=== PATIENT | male | born 1990 | race Caucasian/White ===

== ENCOUNTER 2017-04-10 20:01 | Inpatient (IN) | payer BC, OTHER ==
[2017-04-10] MEDS ORDERED: Ondansetron 4 MG/2 ML SDV IVPUSH ONE (20:53)
[2017-04-10] MEDS ORDERED: Sodium Chloride 0.9% 1,000 ML IV ONE ×3 (20:53→23:39)
--- NOTE | 2017-04-10 20:56 | EDM.PDOC ---
ED HPI GENERAL MEDICAL PROBLEM - General Chief Complaint: Respiratory Problem Stated Complaint: COUGH Time Seen by Provider: 04/10/17 20:06 Source of Information: Reports: Patient, RN Notes Reviewed History Limitations: Reports: No Limitations - History of Present Illness INITIAL COMMENTS - FREE TEXT/NARRATIVE: The patient states that he has had a cough productive of yellow mucus for the past 2 weeks, and laryngitis for the past 4 days. He has not had a fever, and he is not dyspneic at rest, but he does have dyspnea associated with the cough when he exerts himself. He also reports nausea and emesis for the past 2 days. He states that he has been taking [id number] Mucinex, NyQuil, and cough drops, with no relief. The patient states that he is a type I diabetic, and that his blood sugars have been higher than usual over the past 2 days. The patient states that he is from [place], here for work, and that his PCP is back in [place]. He has not sought medical evaluation for this current problem. - Related Data Allergies Allergy/AdvReac Type Severity Reaction Status Date / Time No Known Allergies Allergy Verified 04/10/17 20:11 Home Meds: Home Meds Insulin Npl/Insulin Lispro [HumaLOG Mix 75-25 Vial] 100 unit SQ DAILY 04/10/17 [ History] Past Medical History HEENT History: Reports: Impaired Vision Other HEENT History: wears corrective lenses Endocrine/Metabolic History: Reports: Diabetes, Type I Social & Family History - Tobacco Use Smoking Status *Q: Never Smoker Second Hand Smoke Exposure: No - Caffeine Use Caffeine Use: Reports: Coffee - Alcohol Use Alcohol Use History: Yes Alcohol Use Frequency: Socially - Recreational Drug Use Recreational Drug Use: No - Living Situation & Occupation Living situation: Reports: Single, Alone Occupation: Employed ([employer]) [facility] - Review of Systems Review Of Systems: See Below Constitutional: Reports: No Symptoms. Denies: Fever, Chills HEENT: Reports: No Symptoms Respiratory: Reports: Cough (as per the HPI). Denies: Shortness of Breath Cardiovascular: Reports: Dyspnea on Exertion (as per the HPI) Endocrine: Reports: No Symptoms GI/Abdominal: Reports: Nausea (as per the HPI), Vomiting (as per the HPI) : Reports: No Symptoms Musculoskeletal: Reports: No Symptoms Skin: Reports: No Symptoms Neurological: Reports: No Symptoms Psychiatric: Reports: No Symptoms Hematologic/Lymphatic: Reports: No Symptoms Immunologic: Reports: No Symptoms ED EXAM, GENERAL - Physical Exam Exam: See Below Exam Limited By: No Limitations General Appearance: Alert, WD/WN, No Apparent Distress Eye Exam: Bilateral Eye: Normal Inspection Ears: Normal External Exam, Normal Canal, Hearing Grossly Normal, Normal TMs Nose: Normal Inspection, No Blood, Other (Bilateral nasal mucosal edema, greater on the left than the right) Throat/Mouth: Normal Inspection, Normal Lips, Normal Teeth, Normal Gums, Normal Voice, No Airway Compromise, Other (No oropharyngeal erythema or swelling, however, thick postnasal mucus is noticed draining on the posterior oropharynx) Head: Atraumatic, Normocephalic Neck: Normal Inspection, Supple, Non-Tender, Full Range of Motion. No: Lymphadenopathy (L), Lymphadenopathy (R) Respiratory/Chest: No Respiratory Distress, Lungs Clear, Normal Breath Sounds, No Accessory Muscle Use Cardiovascular: Normal Peripheral Pulses, Regular Rate, Rhythm, No Gallop, No JVD, No Murmur, No Rub Peripheral Pulses: 4+: Radial (L), Radial (R) GI/Abdominal: Normal Bowel Sounds, Soft, Non-Tender, No Organomegaly, No Distention, No Abnormal Bruit, No Mass (Male) Exam: Deferred Rectal (Males) Exam: Deferred Back Exam: Normal Inspection, Full Range of Motion, NT Extremities: Normal Inspection, Normal Range of Motion, No Pedal Edema, Normal Capillary Refill Neurological: Alert, Oriented, Normal Cognition, No Motor/Sensory Deficits Psychiatric: Normal Affect Skin Exam: Warm, Dry, Intact, Normal Color, No Rash Course - Vital Signs Last Recorded V/S: Last Vital Signs Temp 36.6 C 04/10/17 20:07 Pulse 119 H 04/10/17 20:07 Resp 18 04/10/17 20:07 BP 151/104 H 04/10/17 20:07 Pulse Ox 100 04/10/17 20:07 - Orders/Labs/Meds Orders: Active Orders 24 hr Category Date Time Status Chest 2V [CR] Stat Exams 04/10/17 20:52 Taken Sodium Chloride 0.9% [Normal Saline] 1,000 ml Med 04/10/17 22:22 Active IV ONETIME Medication Orders Sodium Chloride (Normal Saline) 1,000 mls @ 999 mls/hr IV ONETIME ONE Stop: 04/10/17 23:22 Last Admin: 04/10/17 22:26 Dose: 999 mls/hr Labs: Laboratory Tests 04/10/17 04/10/17 04/10/17 Range/Units 20:14 20:55 20:55 WBC 8.82 (4.23-9.07) K/mm3 RBC 5.52 (4.63-6.08) M/mm3 Hgb 16.6 (13.7-17.5) gm/L Hct 47.5 (40.1-51.0) % MCV 86.1 (79.0-92.2) fl MCH 30.1 (25.7-32.2) pg MCHC 34.9 (32.2-35.5) g/dl RDW Std Deviation 39.7 (35.1-43.9) fL Plt Count 476 H (163-337) K/mm3 MPV 9.0 L (9.4-12.3) fl Neutrophils % (Manual) 76 H (40-60) % Band Neutrophils % 0 (0-10) % Lymphocytes % (Manual) 18 L (20-40) % Atypical Lymphs % 1 % Monocytes % (Manual) 3 (2-10) % Eosinophils % (Manual) 0 L (0.8-7.0) % Basophils % (Manual) 2 H (0.2-1.2) Platelet Estimate Increased Plt Morphology Comment Normal RBC Morph Comment Normal Sodium 134 L (136-145) mEq/L Potassium 4.4 (3.5-5.1) mEq/L Chloride 96 L (98-107) mEq/L Carbon Dioxide 17 L (21-32) mEq/L Anion Gap 25.4 H (5-15) BUN 15 (7-18) mg/dL Creatinine 1.4 H (0.7-1.3) mg/dL Est Cr Clr Drug Dosing 88.53 mL/min Estimated GFR (MDRD) > 60 (>60) mL/min BUN/Creatinine Ratio 10.7 L (14-18) Glucose 281 H (74-106) mg/dL POC Glucose 307 H (70-105) mg/dL Calcium 10.2 H (8.5-10.1) mg/dL Total Bilirubin 0.6 (0.2-1.0) mg/dL AST 11 L (15-37) U/L ALT 20 (16-63) U/L Alkaline Phosphatase 153 H (46-116) U/L Total Protein 9.2 H (6.4-8.2) g/dl Albumin 4.2 (3.4-5.0) g/dl Globulin 5.0 gm/dL Albumin/Globulin Ratio 0.8 L (1-2) Meds: Medications Generic Name Dose Route Start Last Admin Trade Name Freq PRN Reason Stop Dose Admin Sodium Chloride 1,000 mls @ 999 mls/hr 04/10/17 22:22 04/10/17 22:26 Normal Saline IV 04/10/17 23:22 999 mls/hr ONETIME ONE Administration Discontinued Medications Generic Name Dose Route Start Last Admin Trade Name Freq PRN Reason Stop Dose Admin Sodium Chloride 1,000 mls @ 999 mls/hr 04/10/17 20:53 04/10/17 20:58 Normal Saline IV 04/10/17 21:53 999 mls/hr ONETIME ONE Administration Ondansetron HCl 4 mg 04/10/17 20:53 04/10/17 20:58 Zofran IVPUSH 04/10/17 20:54 4 mg ONETIME ONE Administration - Re-Assessments/Exams Free Text/Narrative Re-Assessment/Exam: 04/10/17 21:12 The patient's Accu-Chek returned elevated at 307. This was discussed with the patient. The patient has his own insulin here in the ED, therefore I have allowed him to take however much insulin he ordinarily would for a blood sugar of 307. 04/10/17 21:12 Two-view chest radiograph appears to be grossly normal. Cardiac silhouette is within normal limits. No pulmonary vascular congestion. No pleural effusions. No focal infiltrate. No pneumothorax. Formal read per the Radiologist pending. 04/10/17 22:26 Test results discussed with the patient. The patient does not have pneumonia - he does not have an elevated WBC count, and his chest x-ray is normal. He does, however, have an anion gap metabolic acidosis and mild hyperglycemia. I don't believe that he has DKA, but I believe if this were left on addressed, that he might develop DKA, therefore I am recommending placement into observation with continued IV fluid and electrolyte monitoring. The patient is agreeable. Case then discussed with Dr. Key at 22:23. She agrees to place the patient into observation, on MedSur with telemetry. Departure - Departure Time of Disposition: 22:26 Disposition: Refer to Observation Condition: Fair Clinical Impression: High anion gap metabolic acidosis, Hyperglycemia due to type 1 diabetes mellitus, Nausea and vomiting - Discharge Information - My Orders Last 24 Hours: My Active Orders 04/10/17 20:52 Chest 2V [CR] Stat 04/10/17 22:22 Sodium Chloride 0.9% [Normal Saline] 1,000 ml IV ONETIME - Assessment/Plan Last 24 Hours: My Active Orders 04/10/17 20:52 Chest 2V [CR] Stat 04/10/17 22:22 Sodium Chloride 0.9% [Normal Saline] 1,000 ml IV ONETIME
[2017-04-10] MEDS ORDERED: Sodium Chloride 0.9% 1,000 ML ONE (23:34)
[2017-04-11] MEDS: Insulin Aspart 100 Units/ML 3 ML Pen SUBCUT SCH ×3 (00:11→13:28)
[2017-04-11] MEDS ORDERED: Temazepam 15 MG Cap PO PRN (00:13)
[2017-04-11] MEDS ORDERED: Acetaminophen 325 MG Tab PO PRN (00:14)
[2017-04-11] MEDS: Sodium Chloride 0.9% 1,000 ML IV SCH ×5 (00:52→14:01)
[2017-04-11] MEDS: Ondansetron 4 MG/2 ML SDV IVPUSH PRN ×2 (06:45→08:59)
[2017-04-11] MEDS ORDERED: Benzonatate 100 MG Cap PO PRN (07:00)
--- NOTE | 2017-04-11 07:10 | CR ---
Chest: Two views of the chest were obtained. Comparison: No prior chest x-ray. Heart size and mediastinum are normal. Lungs are clear. Bony structures are within normal limits for the patient's age. Impression: 1. Nothing acute is identified on two-view chest x-ray. Diagnostic code #1
[2017-04-11] MEDS ORDERED: Sodium Chloride 0.9% 1,000 ML IV ONE ×2 (08:43→10:17)
[2017-04-11] MEDS ORDERED: Ondansetron 4 MG/2 ML SDV IVPUSH ONE (08:50)
--- NOTE | 2017-04-11 08:51 | PCM.PN ---
- General Info Date of Service: 04/11/17 Admission Dx/Problem (Free Text): Emily is a 26yo male patient with hx of type 1 DM since the age of 12. He has been sick with URI type symptoms x 2 weeks, then developed N/V 3 days ago and could not stop. He came into ED last night for eval and tx. He was initially placed into observation for hydration and hyperglycemia. AG was 25 on placement into observation. This morning eval of patient reveals he is still nauseous and vomited 1 hour prior to me seeing him. He is coughing with productive sputum and states he "feels worse today" than he did yesterday. He rec'd 3L of IVF and SSI overnight. AG was still at 25 this morning. ABG was also obtained showing PH of 7.2, pCO2 of 15.5 and pO2 of 107, HCO3 is 5.8, BE -21.3. Serum osmolality is 307 , ketones were pending. Decision was made at that point to transfer patient to ICU for DKA protocol. He rec'd bolus insulin per protocol, blood sugars Q1H have improved, has not needed insulin drip as of yet. Recheck of BMP is pending. Functional Status: Reports: Pain Controlled, Ambulating, Urinating, Other ( productive cough) - Review of Systems General: Reports: Weakness. Denies: Fever HEENT: Reports: No Symptoms Pulmonary: Reports: Cough, Sputum Cardiovascular: Denies: Chest Pain, Palpitations Gastrointestinal: Reports: Nausea, Vomiting Genitourinary: Reports: No Symptoms Musculoskeletal: Reports: No Symptoms Neurological: Reports: No Symptoms - Patient Data Vitals - Most Recent: Last Vital Signs Temp 98.4 F 04/11/17 07:41 Pulse 101 H 04/11/17 07:41 Resp 19 04/11/17 07:41 BP 135/75 04/11/17 07:41 Pulse Ox 100 04/11/17 07:41 Weight - Most Recent: 227 lb 11.2 oz I&O - Last 24 Hours: Intake & Output 04/10/17 04/11/17 04/11/17 22:59 06:59 14:59 Intake Total 600 Output Total 900 Balance -300 Lab Results Last 24 Hours: Laboratory Results - last 24 hr 04/10/17 04/11/17 04/11/17 Range/Units 23:56 04:56 04:56 WBC 8.58 (4.23-9.07) K/mm3 RBC 4.52 L (4.63-6.08) M/mm3 Hgb 13.6 L (13.7-17.5) gm/L Hct 39.9 L (40.1-51.0) % MCV 88.3 (79.0-92.2) fl MCH 30.1 (25.7-32.2) pg MCHC 34.1 (32.2-35.5) g/dl RDW Std Deviation 40.7 (35.1-43.9) fL Plt Count 417 H (163-337) K/mm3 MPV 9.4 (9.4-12.3) fl Neut % (Auto) 48.7 (34.0-67.9) % Lymph % (Auto) 41.0 (21.8-53.1) % [place] % (Auto) 5.5 (5.3-12.2) % Eos % (Auto) 3.5 (0.8-7.0) Baso % (Auto) 0.7 (0.1-1.2) % Neut # (Auto) 4.18 (1.78-5.38) K/mm3 Lymph # (Auto) 3.52 (1.32-3.57) K/mm3 [place] # (Auto) 0.47 (0.30-0.82) K/mm3 Eos # (Auto) 0.30 (0.04-0.54) K/mm3 Baso # (Auto) 0.06 (0.01-0.08) K/mm3 Sodium 133 L (136-145) mEq/L Potassium 4.5 (3.5-5.1) mEq/L Chloride 100 (98-107) mEq/L Carbon Dioxide 12 L (21-32) mEq/L Anion Gap 25.5 H (5-15) BUN 11 (7-18) mg/dL Creatinine 1.1 (0.7-1.3) mg/dL Est Cr Clr Drug Dosing 112.68 mL/min Estimated GFR (MDRD) > 60 (>60) mL/min BUN/Creatinine Ratio 10.0 L (14-18) Glucose 338 H (74-106) mg/dL POC Glucose 212 H (70-105) mg/dL Lactic Acid (0.4-2.0) mmol/L Calcium 8.2 L (8.5-10.1) mg/dL Magnesium 1.7 L (1.8-2.4) mg/dl C-Reactive Protein 0.6 (<1.0) mg/dL 04/11/17 04/11/17 Range/Units 04:56 06:13 WBC (4.23-9.07) K/mm3 RBC (4.63-6.08) M/mm3 Hgb (13.7-17.5) gm/L Hct (40.1-51.0) % MCV (79.0-92.2) fl MCH (25.7-32.2) pg MCHC (32.2-35.5) g/dl RDW Std Deviation (35.1-43.9) fL Plt Count (163-337) K/mm3 MPV (9.4-12.3) fl Neut % (Auto) (34.0-67.9) % Lymph % (Auto) (21.8-53.1) % [place] % (Auto) (5.3-12.2) % Eos % (Auto) (0.8-7.0) Baso % (Auto) (0.1-1.2) % Neut # (Auto) (1.78-5.38) K/mm3 Lymph # (Auto) (1.32-3.57) K/mm3 [place] # (Auto) (0.30-0.82) K/mm3 Eos # (Auto) (0.04-0.54) K/mm3 Baso # (Auto) (0.01-0.08) K/mm3 Sodium (136-145) mEq/L Potassium (3.5-5.1) mEq/L Chloride (98-107) mEq/L Carbon Dioxide (21-32) mEq/L Anion Gap (5-15) BUN (7-18) mg/dL Creatinine (0.7-1.3) mg/dL Est Cr Clr Drug Dosing mL/min Estimated GFR (MDRD) (>60) mL/min BUN/Creatinine Ratio (14-18) Glucose (74-106) mg/dL POC Glucose 371 H (70-105) mg/dL Lactic Acid 0.5 (0.4-2.0) mmol/L Calcium (8.5-10.1) mg/dL Magnesium (1.8-2.4) mg/dl C-Reactive Protein (<1.0) mg/dL Med Orders - Current: Current Medications Acetaminophen (Tylenol) 650 mg PO Q6H PRN PRN Reason: Pain/Fever Benzonatate (Tessalon Perles) 100 mg PO TID PRN PRN Reason: Cough Guaifenesin (Mucinex) 1,200 mg PO BID ALEJANDRA Guaifenesin/Codeine Phosphate (Robitussin Ac) 5 ml PO Q4H PRN PRN Reason: Cough Sodium Chloride (Normal Saline) 1,000 mls @ 250 mls/hr IV ASDIRECTED [facility] Last Admin: 04/11/17 04:57 Dose: 250 mls/hr Azithromycin 500 mg/ Sodium (Chloride) 250 mls @ 250 mls/hr IV Q24H ALEJANDRA Sodium Chloride (Normal Saline) 1,000 mls @ 999 mls/hr IV ONETIME ONE Stop: 04/11/17 09:43 Insulin Aspart (Novolog) 0 unit SUBCUT QIDACANDBED [facility] PRN Reason: Protocol Last Admin: 04/11/17 06:42 Dose: 5 units Magnesium Oxide (Magnesium Oxide) 400 mg PO BID ALEJANDRA Ondansetron HCl (Zofran) 4 mg IVPUSH Q8H PRN PRN Reason: Nausea/Vomiting Last Admin: 04/11/17 06:45 Dose: 4 mg Temazepam (Restoril) 15 mg PO BEDTIME PRN PRN Reason: Sleep Discontinued Medications Sodium Chloride (Normal Saline) 1,000 mls @ 999 mls/hr IV ONETIME ONE Stop: 04/10/17 21:53 Last Admin: 04/10/17 20:58 Dose: 999 mls/hr Sodium Chloride (Normal Saline) 1,000 mls @ 999 mls/hr IV ONETIME ONE Stop: 04/10/17 23:22 Last Admin: 04/10/17 22:26 Dose: 999 mls/hr Sodium Chloride (Normal Saline) Confirm Administered Dose 1,000 mls @ as directed .ROUTE .STK-MED ONE Stop: 04/10/17 23:35 Last Admin: 04/10/17 23:41 Dose: Not Given Sodium Chloride (Normal Saline) 1,000 mls @ 999 mls/hr IV ONETIME ONE Stop: 04/11/17 00:39 Last Admin: 04/10/17 23:44 Dose: 999 mls/hr Ondansetron HCl (Zofran) 4 mg IVPUSH ONETIME ONE Stop: 04/10/17 20:54 Last Admin: 04/10/17 20:58 Dose: 4 mg - Exam Quality Assessment: DVT Prophylaxis General: Alert, Oriented, Cooperative, Other (appears mildly diaphretic initially in day; second visit he appears much better and less toxic) HEENT: Pupils Equal, EOMI. No: Mucous Membr. Moist/[place] (dry) Neck: Supple Lungs: Normal Respiratory Effort, Decreased Breath Sounds, Rhonchi, Other ( course cough) Cardiovascular: Regular Rate, Regular Rhythm, Tachycardia (intermittent; HR's up to 140's) GI/Abdominal Exam: Normal Bowel Sounds, Soft (Male) Exam: Deferred Extremities: Normal Inspection, No Pedal Edema, Normal Capillary Refill Peripheral Pulses: 2+: Dorsalis Pedis (L), Dorsalis Pedis (R) Neurological: No New Focal Deficit Psy/Mental Status: Alert, Normal Affect, Normal Mood - Problem List & Annotations (1) DKA, type 1 SNOMED Code(s): 385294437 Code(s): E10.10 - TYPE 1 DIABETES MELLITUS WITH KETOACIDOSIS WITHOUT COMA Status: Acute Priority: High Current Visit: Yes Qualifiers: Diabetes mellitus complication detail: without coma Qualified Code(s): E10.10 - Type 1 diabetes mellitus with ketoacidosis without coma (2) Nausea and vomiting SNOMED Code(s): 89593835 Code(s): R11.2 - NAUSEA WITH VOMITING, UNSPECIFIED Status: Acute Priority : High Current Visit: Yes Qualifiers: Vomiting type: unspecified Vomiting Intractability: intractable Qualified Code(s): R11.2 - Nausea with vomiting, unspecified (3) Bronchitis SNOMED Code(s): 76230912 Code(s): J40 - BRONCHITIS, NOT SPECIFIED ACUTE OR CHRONIC Status: Acute Priority: High Current Visit: Yes - Problem List Review Problem List Initiated/Reviewed/Updated: Yes - My Orders Last 24 Hours: My Active Orders 04/11/17 06:55 CULTURE SPUTUM + SMEAR [RM] Routine Codeine/guaiFENesin [Robitussin AC] 5 ml PO Q4H PRN 04/11/17 07:00 Benzonatate [Tessalon Perles] 100 mg PO TID PRN 04/11/17 08:36 ABG [BLOOD GAS ARTERIAL] [BG] Urgent 04/11/17 08:37 Chest 2V [CR] Routine 04/11/17 08:38 STREP PNEUMONIAE ANTIGEN [MREF] Routine 04/11/17 08:43 Sodium Chloride 0.9% [Normal Saline] 1,000 ml IV ONETIME 04/11/17 08:45 OSMOLALITY,SERUM [CHEM] Routine Azithromycin [Zithromax] 500 mg Sodium Chloride 0.9% [Normal Saline] 250 ml IV Q24H Magnesium Oxide 400 mg PO BID guaiFENesin [Mucinex] 1,200 mg PO BID 04/11/17 Lunch NPO Now [Nothing per Oral Now Diet] [DIET] - Plan Plan:: I/P: DKA in type 1 DM -Triggered by acute URI, evolving to N/V -Had prior been on pump but has not had pump now for 2-3 months, has been dosing SSI of 15U in morning and SSI based on sugar and carbs at mealtimes. -Patient with DKA-- blood sugars 300's, AG>25, PH 7.2, osmolality 307. Transfer to ICU status with insulin drip protocol for DKA, recheck BMP in 4 hours. -Hourly Accuchecks -A1C 9.2 -CDE- did visit with patient -From [place], moved to [place] within last 3 months- no PCP or CDE in [place] currently. Will recommend f/up with Dr. Merchant after discharge to establish IM/PCP locally and also with CDE Karolina Hathaway for his pump per Hospital CDE recommendations. Bronchitis -Zithromax -Albuterol SVN and PRN -Mucinex, tessalon perles, prometh with codeine cough syrup -Repeat CXR this morning unremarkable for pneumonia or other acute findings Other: GI prophylax DVT prophylax- ambulate CM/SW for assist with DC planning Once AG closes will be able to advance diet. If tolerates meals can DC home, maybe tomorrow Patient is Full Code status.
[2017-04-11] MEDS: Magnesium Oxide 400 MG Tab PO SCH ×3 (09:08→20:15)
[2017-04-11] MEDS: guaiFENesin 600 MG Tab.ER PO SCH ×3 (09:08→20:15)
[2017-04-11] MEDS: Codeine/guaiFENesin 100-10 MG/5 ML Syrup 5 ML Cup PO PRN ×2 (09:09→23:05)
--- NOTE | 2017-04-11 09:36 | CR ---
Chest: Two views of the chest were obtained. Comparison: Previous chest x-ray of 04/10/17. Heart size and mediastinum are normal. Lungs are clear. Bony structures are unremarkable for the patient's age. Impression: 1. Nothing acute is identified on two-view chest x-ray. Diagnostic code #1
[2017-04-11] MEDS: Azithromycin 500 MG in Sodium Chloride 0.9% 250 ML IV SCH (09:55)
[2017-04-11] MEDS ORDERED: Magnesium Sulfate/Water 2 GM in Premix Bag 1 BAG IV ONE (10:00)
[2017-04-11] MEDS ORDERED: Insulin Aspart 100 Units/ML 3 ML Pen SUBCUT STA (10:16)
[2017-04-11] MEDS ORDERED: Albuterol 0.083% 2.5 MG/3 ML Neb Soln NEB PRN (13:42)
[2017-04-11] MEDS ORDERED: Albuterol 0.083% 2.5 MG/3 ML Neb Soln NEB ONE (13:42)
[2017-04-11] MEDS: Famotidine 20 MG Tab PO SCH ×2 (14:06→20:15)
[2017-04-11] MEDS: Dextrose 5%-0.9% NaCl 1,000 ML IV SCH (16:57)
[2017-04-12] MEDS: Dextrose 5%-0.9% NaCl 1,000 ML IV SCH ×3 (01:04→17:38)
--- NOTE | 2017-04-12 06:22 | PCM.PN ---
- General Info Date of Service: 04/12/17 Admission Dx/Problem (Free Text): KATHLEEN Diaz is seen this morning, feeling better but more tired today. Did sleep "some" last night. Denies c/o pain. Cough is slightly improved, minimal production today. He has been afebrile. He is ambulatory and steady. He is on D5NS and insulin drip currently. Functional Status: Reports: Pain Controlled, Ambulating, Urinating. Denies: Tolerating Diet (NPO), New Symptoms - Review of Systems General: Denies: Fever HEENT: Reports: No Symptoms Pulmonary: Reports: Cough (improved), Sputum (minimal to none this morning) Cardiovascular: Reports: No Symptoms. Denies: Chest Pain Gastrointestinal: Reports: No Symptoms. Denies: Abdominal Pain, Nausea, Vomiting Genitourinary: Reports: No Symptoms Musculoskeletal: Reports: No Symptoms Neurological: Reports: No Symptoms - Patient Data Vitals - Most Recent: Last Vital Signs Temp 97.6 F 04/12/17 04:00 Pulse 94 04/11/17 21:00 Resp 16 04/12/17 04:00 BP 112/67 04/12/17 04:00 Pulse Ox 100 04/12/17 05:00 Weight - Most Recent: 229 lb I&O - Last 24 Hours: Intake & Output 04/11/17 04/11/17 04/12/17 14:59 22:59 06:59 Intake Total 3609 2058 Output Total 4400 600 Balance -791 1458 Lab Results Last 24 Hours: Laboratory Results - last 24 hr 04/11/17 04/11/17 04/11/17 Range/Units 10:58 12:01 13:05 WBC (4.23-9.07) K/mm3 RBC (4.63-6.08) M/mm3 Hgb (13.7-17.5) gm/L Hct (40.1-51.0) % MCV (79.0-92.2) fl MCH (25.7-32.2) pg MCHC (32.2-35.5) g/dl RDW Std Deviation (35.1-43.9) fL Plt Count (163-337) K/mm3 MPV (9.4-12.3) fl Neut % (Auto) (34.0-67.9) % Lymph % (Auto) (21.8-53.1) % [place] % (Auto) (5.3-12.2) % Eos % (Auto) (0.8-7.0) Baso % (Auto) (0.1-1.2) % Neut # (Auto) (1.78-5.38) K/mm3 Lymph # (Auto) (1.32-3.57) K/mm3 [place] # (Auto) (0.30-0.82) K/mm3 Eos # (Auto) (0.04-0.54) K/mm3 Baso # (Auto) (0.01-0.08) K/mm3 Puncture Site ABG pH (7.35-7.45) ABG pCO2 (35.0-45.0) mmHg ABG pO2 (80.0-100.0) mmHg ABG HCO3 (22.0-26.0) meq/L ABG O2 Saturation (96.0-97.0) % ABG Base Excess (-2-2.0) William Test A-a Gradient mmHg O2 Delivery Device FiO2 (21.00-100.00) % Sodium (136-145) mEq/L Potassium (3.5-5.1) mEq/L Chloride (98-107) mEq/L Carbon Dioxide (21-32) mEq/L Anion Gap (5-15) BUN (7-18) mg/dL Creatinine (0.7-1.3) mg/dL Est Cr Clr Drug Dosing mL/min Estimated GFR (MDRD) (>60) mL/min BUN/Creatinine Ratio (14-18) Glucose (74-106) mg/dL POC Glucose 310 H 252 H 196 H (70-105) mg/dL Calcium (8.5-10.1) mg/dL C-Reactive Protein (<1.0) mg/dL Ketones (0.0-0.3) mM 04/11/17 04/11/17 04/11/17 Range/Units 13:59 14:15 14:15 WBC 9.87 H (4.23-9.07) K/mm3 RBC 4.72 (4.63-6.08) M/mm3 Hgb 14.4 (13.7-17.5) gm/L Hct 41.7 (40.1-51.0) % MCV 88.3 (79.0-92.2) fl MCH 30.5 (25.7-32.2) pg MCHC 34.5 (32.2-35.5) g/dl RDW Std Deviation 40.9 (35.1-43.9) fL Plt Count 380 H (163-337) K/mm3 MPV 8.9 L (9.4-12.3) fl Neut % (Auto) 48.2 (34.0-67.9) % Lymph % (Auto) 43.9 (21.8-53.1) % [place] % (Auto) 5.6 (5.3-12.2) % Eos % (Auto) 1.2 (0.8-7.0) Baso % (Auto) 0.5 (0.1-1.2) % Neut # (Auto) 4.76 (1.78-5.38) K/mm3 Lymph # (Auto) 4.33 H (1.32-3.57) K/mm3 [place] # (Auto) 0.55 (0.30-0.82) K/mm3 Eos # (Auto) 0.12 (0.04-0.54) K/mm3 Baso # (Auto) 0.05 (0.01-0.08) K/mm3 Puncture Site ABG pH (7.35-7.45) ABG pCO2 (35.0-45.0) mmHg ABG pO2 (80.0-100.0) mmHg ABG HCO3 (22.0-26.0) meq/L ABG O2 Saturation (96.0-97.0) % ABG Base Excess (-2-2.0) William Test A-a Gradient mmHg O2 Delivery Device FiO2 (21.00-100.00) % Sodium 137 (136-145) mEq/L Potassium 4.4 (3.5-5.1) mEq/L Chloride 105 (98-107) mEq/L Carbon Dioxide 11 L (21-32) mEq/L Anion Gap 25.4 H (5-15) BUN 9 (7-18) mg/dL Creatinine 1.2 (0.7-1.3) mg/dL Est Cr Clr Drug Dosing 103.29 mL/min Estimated GFR (MDRD) > 60 (>60) mL/min BUN/Creatinine Ratio 7.5 L (14-18) Glucose 170 H (74-106) mg/dL POC Glucose 184 H (70-105) mg/dL Calcium 8.1 L (8.5-10.1) mg/dL C-Reactive Protein 0.3 (<1.0) mg/dL Ketones (0.0-0.3) mM 04/11/17 04/11/17 04/11/17 Range/Units 14:15 15:20 16:12 WBC (4.23-9.07) K/mm3 RBC (4.63-6.08) M/mm3 Hgb (13.7-17.5) gm/L Hct (40.1-51.0) % MCV (79.0-92.2) fl MCH (25.7-32.2) pg MCHC (32.2-35.5) g/dl RDW Std Deviation (35.1-43.9) fL Plt Count (163-337) K/mm3 MPV (9.4-12.3) fl Neut % (Auto) (34.0-67.9) % Lymph % (Auto) (21.8-53.1) % [place] % (Auto) (5.3-12.2) % Eos % (Auto) (0.8-7.0) Baso % (Auto) (0.1-1.2) % Neut # (Auto) (1.78-5.38) K/mm3 Lymph # (Auto) (1.32-3.57) K/mm3 [place] # (Auto) (0.30-0.82) K/mm3 Eos # (Auto) (0.04-0.54) K/mm3 Baso # (Auto) (0.01-0.08) K/mm3 Puncture Site ABG pH (7.35-7.45) ABG pCO2 (35.0-45.0) mmHg ABG pO2 (80.0-100.0) mmHg ABG HCO3 (22.0-26.0) meq/L ABG O2 Saturation (96.0-97.0) % ABG Base Excess (-2-2.0) William Test A-a Gradient mmHg O2 Delivery Device FiO2 (21.00-100.00) % Sodium (136-145) mEq/L Potassium (3.5-5.1) mEq/L Chloride (98-107) mEq/L Carbon Dioxide (21-32) mEq/L Anion Gap (5-15) BUN (7-18) mg/dL Creatinine (0.7-1.3) mg/dL Est Cr Clr Drug Dosing mL/min Estimated GFR (MDRD) (>60) mL/min BUN/Creatinine Ratio (14-18) Glucose (74-106) mg/dL POC Glucose 178 H 195 H (70-105) mg/dL Calcium (8.5-10.1) mg/dL C-Reactive Protein (<1.0) mg/dL Ketones 7.02 (0.0-0.3) mM 04/11/17 04/11/17 04/11/17 Range/Units 16:30 17:06 18:11 WBC (4.23-9.07) K/mm3 RBC (4.63-6.08) M/mm3 Hgb (13.7-17.5) gm/L Hct (40.1-51.0) % MCV (79.0-92.2) fl MCH (25.7-32.2) pg MCHC (32.2-35.5) g/dl RDW Std Deviation (35.1-43.9) fL Plt Count (163-337) K/mm3 MPV (9.4-12.3) fl Neut % (Auto) (34.0-67.9) % Lymph % (Auto) (21.8-53.1) % [place] % (Auto) (5.3-12.2) % Eos % (Auto) (0.8-7.0) Baso % (Auto) (0.1-1.2) % Neut # (Auto) (1.78-5.38) K/mm3 Lymph # (Auto) (1.32-3.57) K/mm3 [place] # (Auto) (0.30-0.82) K/mm3 Eos # (Auto) (0.04-0.54) K/mm3 Baso # (Auto) (0.01-0.08) K/mm3 Puncture Site Rt radial ABG pH 7.19 L* (7.35-7.45) ABG pCO2 19.1 L* (35.0-45.0) mmHg ABG pO2 104.0 H (80.0-100.0) mmHg ABG HCO3 7.0 L (22.0-26.0) meq/L ABG O2 Saturation 99.3 H (96.0-97.0) % ABG Base Excess -20.2 L (-2-2.0) William Test Positive A-a Gradient 6 mmHg O2 Delivery Device Room air FiO2 21.00 (21.00-100.00) % Sodium (136-145) mEq/L Potassium (3.5-5.1) mEq/L Chloride (98-107) mEq/L Carbon Dioxide (21-32) mEq/L Anion Gap (5-15) BUN (7-18) mg/dL Creatinine (0.7-1.3) mg/dL Est Cr Clr Drug Dosing mL/min Estimated GFR (MDRD) (>60) mL/min BUN/Creatinine Ratio (14-18) Glucose (74-106) mg/dL POC Glucose 202 H 236 H (70-105) mg/dL Calcium (8.5-10.1) mg/dL C-Reactive Protein (<1.0) mg/dL Ketones (0.0-0.3) mM 04/11/17 04/11/17 04/11/17 Range/Units 19:00 20:01 21:07 WBC (4.23-9.07) K/mm3 RBC (4.63-6.08) M/mm3 Hgb (13.7-17.5) gm/L Hct (40.1-51.0) % MCV (79.0-92.2) fl MCH (25.7-32.2) pg MCHC (32.2-35.5) g/dl RDW Std Deviation (35.1-43.9) fL Plt Count (163-337) K/mm3 MPV (9.4-12.3) fl Neut % (Auto) (34.0-67.9) % Lymph % (Auto) (21.8-53.1) % [place] % (Auto) (5.3-12.2) % Eos % (Auto) (0.8-7.0) Baso % (Auto) (0.1-1.2) % Neut # (Auto) (1.78-5.38) K/mm3 Lymph # (Auto) (1.32-3.57) K/mm3 [place] # (Auto) (0.30-0.82) K/mm3 Eos # (Auto) (0.04-0.54) K/mm3 Baso # (Auto) (0.01-0.08) K/mm3 Puncture Site ABG pH (7.35-7.45) ABG pCO2 (35.0-45.0) mmHg ABG pO2 (80.0-100.0) mmHg ABG HCO3 (22.0-26.0) meq/L ABG O2 Saturation (96.0-97.0) % ABG Base Excess (-2-2.0) William Test A-a Gradient mmHg O2 Delivery Device FiO2 (21.00-100.00) % Sodium (136-145) mEq/L Potassium (3.5-5.1) mEq/L Chloride (98-107) mEq/L Carbon Dioxide (21-32) mEq/L Anion Gap (5-15) BUN (7-18) mg/dL Creatinine (0.7-1.3) mg/dL Est Cr Clr Drug Dosing mL/min Estimated GFR (MDRD) (>60) mL/min BUN/Creatinine Ratio (14-18) Glucose (74-106) mg/dL POC Glucose 325 H 296 H 221 H (70-105) mg/dL Calcium (8.5-10.1) mg/dL C-Reactive Protein (<1.0) mg/dL Ketones (0.0-0.3) mM 04/11/17 04/11/17 04/12/17 Range/Units 22:05 23:02 00:05 WBC (4.23-9.07) K/mm3 RBC (4.63-6.08) M/mm3 Hgb (13.7-17.5) gm/L Hct (40.1-51.0) % MCV (79.0-92.2) fl MCH (25.7-32.2) pg MCHC (32.2-35.5) g/dl RDW Std Deviation (35.1-43.9) fL Plt Count (163-337) K/mm3 MPV (9.4-12.3) fl Neut % (Auto) (34.0-67.9) % Lymph % (Auto) (21.8-53.1) % [place] % (Auto) (5.3-12.2) % Eos % (Auto) (0.8-7.0) Baso % (Auto) (0.1-1.2) % Neut # (Auto) (1.78-5.38) K/mm3 Lymph # (Auto) (1.32-3.57) K/mm3 [place] # (Auto) (0.30-0.82) K/mm3 Eos # (Auto) (0.04-0.54) K/mm3 Baso # (Auto) (0.01-0.08) K/mm3 Puncture Site ABG pH (7.35-7.45) ABG pCO2 (35.0-45.0) mmHg ABG pO2 (80.0-100.0) mmHg ABG HCO3 (22.0-26.0) meq/L ABG O2 Saturation (96.0-97.0) % ABG Base Excess (-2-2.0) William Test A-a Gradient mmHg O2 Delivery Device FiO2 (21.00-100.00) % Sodium (136-145) mEq/L Potassium (3.5-5.1) mEq/L Chloride (98-107) mEq/L Carbon Dioxide (21-32) mEq/L Anion Gap (5-15) BUN (7-18) mg/dL Creatinine (0.7-1.3) mg/dL Est Cr Clr Drug Dosing mL/min Estimated GFR (MDRD) (>60) mL/min BUN/Creatinine Ratio (14-18) Glucose (74-106) mg/dL POC Glucose 203 H 182 H 153 H (70-105) mg/dL Calcium (8.5-10.1) mg/dL C-Reactive Protein (<1.0) mg/dL Ketones (0.0-0.3) mM 04/12/17 04/12/17 04/12/17 Range/Units 00:23 01:02 02:05 WBC (4.23-9.07) K/mm3 RBC (4.63-6.08) M/mm3 Hgb (13.7-17.5) gm/L Hct (40.1-51.0) % MCV (79.0-92.2) fl MCH (25.7-32.2) pg MCHC (32.2-35.5) g/dl RDW Std Deviation (35.1-43.9) fL Plt Count (163-337) K/mm3 MPV (9.4-12.3) fl Neut % (Auto) (34.0-67.9) % Lymph % (Auto) (21.8-53.1) % [place] % (Auto) (5.3-12.2) % Eos % (Auto) (0.8-7.0) Baso % (Auto) (0.1-1.2) % Neut # (Auto) (1.78-5.38) K/mm3 Lymph # (Auto) (1.32-3.57) K/mm3 [place] # (Auto) (0.30-0.82) K/mm3 Eos # (Auto) (0.04-0.54) K/mm3 Baso # (Auto) (0.01-0.08) K/mm3 Puncture Site ABG pH (7.35-7.45) ABG pCO2 (35.0-45.0) mmHg ABG pO2 (80.0-100.0) mmHg ABG HCO3 (22.0-26.0) meq/L ABG O2 Saturation (96.0-97.0) % ABG Base Excess (-2-2.0) William Test A-a Gradient mmHg O2 Delivery Device FiO2 (21.00-100.00) % Sodium 138 (136-145) mEq/L Potassium 3.7 (3.5-5.1) mEq/L Chloride 107 (98-107) mEq/L Carbon Dioxide 13 L (21-32) mEq/L Anion Gap 21.7 H (5-15) BUN 7 (7-18) mg/dL Creatinine 1.2 (0.7-1.3) mg/dL Est Cr Clr Drug Dosing 103.29 mL/min Estimated GFR (MDRD) > 60 (>60) mL/min BUN/Creatinine Ratio 5.8 L (14-18) Glucose 163 H (74-106) mg/dL POC Glucose 159 H 153 H (70-105) mg/dL Calcium 8.4 L (8.5-10.1) mg/dL C-Reactive Protein (<1.0) mg/dL Ketones (0.0-0.3) mM 04/12/17 04/12/17 04/12/17 Range/Units 03:04 04:01 05:00 WBC (4.23-9.07) K/mm3 RBC (4.63-6.08) M/mm3 Hgb (13.7-17.5) gm/L Hct (40.1-51.0) % MCV (79.0-92.2) fl MCH (25.7-32.2) pg MCHC (32.2-35.5) g/dl RDW Std Deviation (35.1-43.9) fL Plt Count (163-337) K/mm3 MPV (9.4-12.3) fl Neut % (Auto) (34.0-67.9) % Lymph % (Auto) (21.8-53.1) % [place] % (Auto) (5.3-12.2) % Eos % (Auto) (0.8-7.0) Baso % (Auto) (0.1-1.2) % Neut # (Auto) (1.78-5.38) K/mm3 Lymph # (Auto) (1.32-3.57) K/mm3 [place] # (Auto) (0.30-0.82) K/mm3 Eos # (Auto) (0.04-0.54) K/mm3 Baso # (Auto) (0.01-0.08) K/mm3 Puncture Site ABG pH (7.35-7.45) ABG pCO2 (35.0-45.0) mmHg ABG pO2 (80.0-100.0) mmHg ABG HCO3 (22.0-26.0) meq/L ABG O2 Saturation (96.0-97.0) % ABG Base Excess (-2-2.0) William Test A-a Gradient mmHg O2 Delivery Device FiO2 (21.00-100.00) % Sodium (136-145) mEq/L Potassium (3.5-5.1) mEq/L Chloride (98-107) mEq/L Carbon Dioxide (21-32) mEq/L Anion Gap (5-15) BUN (7-18) mg/dL Creatinine (0.7-1.3) mg/dL Est Cr Clr Drug Dosing mL/min Estimated GFR (MDRD) (>60) mL/min BUN/Creatinine Ratio (14-18) Glucose (74-106) mg/dL POC Glucose 134 H 136 H 131 H (70-105) mg/dL Calcium (8.5-10.1) mg/dL C-Reactive Protein (<1.0) mg/dL Ketones (0.0-0.3) mM 04/12/17 Range/Units 06:01 WBC (4.23-9.07) K/mm3 RBC (4.63-6.08) M/mm3 Hgb (13.7-17.5) gm/L Hct (40.1-51.0) % MCV (79.0-92.2) fl MCH (25.7-32.2) pg MCHC (32.2-35.5) g/dl RDW Std Deviation (35.1-43.9) fL Plt Count (163-337) K/mm3 MPV (9.4-12.3) fl Neut % (Auto) (34.0-67.9) % Lymph % (Auto) (21.8-53.1) % [place] % (Auto) (5.3-12.2) % Eos % (Auto) (0.8-7.0) Baso % (Auto) (0.1-1.2) % Neut # (Auto) (1.78-5.38) K/mm3 Lymph # (Auto) (1.32-3.57) K/mm3 [place] # (Auto) (0.30-0.82) K/mm3 Eos # (Auto) (0.04-0.54) K/mm3 Baso # (Auto) (0.01-0.08) K/mm3 Puncture Site ABG pH (7.35-7.45) ABG pCO2 (35.0-45.0) mmHg ABG pO2 (80.0-100.0) mmHg ABG HCO3 (22.0-26.0) meq/L ABG O2 Saturation (96.0-97.0) % ABG Base Excess (-2-2.0) William Test A-a Gradient mmHg O2 Delivery Device FiO2 (21.00-100.00) % Sodium (136-145) mEq/L Potassium (3.5-5.1) mEq/L Chloride (98-107) mEq/L Carbon Dioxide (21-32) mEq/L Anion Gap (5-15) BUN (7-18) mg/dL Creatinine (0.7-1.3) mg/dL Est Cr Clr Drug Dosing mL/min Estimated GFR (MDRD) (>60) mL/min BUN/Creatinine Ratio (14-18) Glucose (74-106) mg/dL POC Glucose 137 H (70-105) mg/dL Calcium (8.5-10.1) mg/dL C-Reactive Protein (<1.0) mg/dL Ketones (0.0-0.3) mM Med Orders - Current: Current Medications Acetaminophen (Tylenol) 650 mg PO Q6H PRN PRN Reason: Pain/Fever Albuterol (Proventil Neb Soln) 2.5 mg NEB Q6HRRT PRN PRN Reason: wheezing, cough, SOB Benzonatate (Tessalon Perles) 100 mg PO TID PRN PRN Reason: Cough Last Admin: 04/11/17 09:09 Dose: 100 mg Famotidine (Pepcid) 20 mg PO BID ALEJANDRA Last Admin: 04/11/17 20:15 Dose: 20 mg Guaifenesin (Mucinex) 1,200 mg PO BID ALEJANDRA Last Admin: 04/11/17 20:15 Dose: 1,200 mg Guaifenesin/Codeine Phosphate (Robitussin Ac) 5 ml PO Q4H PRN PRN Reason: Cough Last Admin: 04/11/17 23:05 Dose: 5 ml Sodium Chloride (Normal Saline) 1,000 mls @ 250 mls/hr IV ASDIRECTED ALEJANDRA Last Admin: 04/11/17 14:01 Dose: 250 mls/hr Azithromycin 500 mg/ Sodium (Chloride) 250 mls @ 250 mls/hr IV Q24H ALEJANDRA Last Admin: 04/11/17 09:55 Dose: 250 mls/hr Insulin Human Regular 100 unit (/ Sodium Chloride) 100 mls @ 0 mls/hr IV TITRATE ALEJANDRA; 0.1 UNITS/KG/HR PRN Reason: Protocol Last Titration: 04/12/17 03:06 Dose: 0.01 units/kg/hr, 1.5 mls/hr Dextrose/Sodium Chloride (Dextrose 5%-Normal Saline) 1,000 mls @ 125 mls/hr IV ASDIRECTED ALEJANDRA Last Admin: 04/12/17 01:04 Dose: 125 mls/hr Magnesium Oxide (Magnesium Oxide) 400 mg PO BID ALEJANDRA Last Admin: 04/11/17 20:15 Dose: 400 mg Ondansetron HCl (Zofran) 4 mg IVPUSH Q8H PRN PRN Reason: Nausea/Vomiting Last Admin: 04/11/17 08:59 Dose: 4 mg Temazepam (Restoril) 15 mg PO BEDTIME PRN PRN Reason: Sleep Discontinued Medications Albuterol (Proventil Neb Soln) 2.5 mg NEB ONETIME ONE Stop: 04/11/17 13:43 Last Admin: 04/11/17 13:56 Dose: 2.5 mg Sodium Chloride (Normal Saline) 1,000 mls @ 999 mls/hr IV ONETIME ONE Stop: 04/10/17 21:53 Last Admin: 04/10/17 20:58 Dose: 999 mls/hr Sodium Chloride (Normal Saline) 1,000 mls @ 999 mls/hr IV ONETIME ONE Stop: 04/10/17 23:22 Last Admin: 04/10/17 22:26 Dose: 999 mls/hr Sodium Chloride (Normal Saline) Confirm Administered Dose 1,000 mls @ as directed .ROUTE .STK-MED ONE Stop: 04/10/17 23:35 Last Admin: 04/10/17 23:41 Dose: Not Given Sodium Chloride (Normal Saline) 1,000 mls @ 999 mls/hr IV ONETIME ONE Stop: 04/11/17 00:39 Last Admin: 04/10/17 23:44 Dose: 999 mls/hr Sodium Chloride (Normal Saline) 1,000 mls @ 999 mls/hr IV ONETIME ONE Stop: 04/11/17 09:43 Last Admin: 04/11/17 09:02 Dose: 999 mls/hr Magnesium Sulfate 2 gm/ Premix 50 mls @ 25 mls/hr IV ONETIME ONE Stop: 04/11/17 11:59 Last Admin: 04/11/17 10:03 Dose: 25 mls/hr Insulin Human Regular 100 unit (/ Sodium Chloride) 100 mls @ 0 mls/hr IV TITRATE ALEJANDRA; 0.1 UNITS/KG/HR PRN Reason: Protocol Sodium Chloride (Normal Saline) 1,000 mls @ 999 mls/hr IV ONETIME ONE Stop: 04/11/17 11:17 Last Admin: 04/11/17 12:41 Dose: 999 mls/hr Insulin Aspart (Novolog) 0 unit SUBCUT QIDACANDBED [facility] PRN Reason: Protocol Last Admin: 04/11/17 13:28 Dose: Not Given Insulin Aspart (Novolog) 10 unit SUBCUT NOW STA Stop: 04/11/17 10:17 Last Admin: 04/11/17 10:59 Dose: 10 units Ondansetron HCl (Zofran) 4 mg IVPUSH ONETIME ONE Stop: 04/10/17 20:54 Last Admin: 04/10/17 20:58 Dose: 4 mg Ondansetron HCl (Zofran) 4 mg IVPUSH ONETIME ONE Stop: 04/11/17 08:51 Last Admin: 04/11/17 09:44 Dose: Not Given - Exam Quality Assessment: DVT Prophylaxis General: Alert, Oriented, Cooperative, No Acute Distress HEENT: Pupils Equal, EOMI, Mucous Membr. Moist/[place] Neck: Supple Lungs: Clear to Auscultation, Normal Respiratory Effort, Decreased Breath Sounds (bases bilat) Cardiovascular: Regular Rate, Regular Rhythm, No Murmurs GI/Abdominal Exam: Normal Bowel Sounds, Soft, Non-Tender (Male) Exam: Deferred Extremities: Normal Inspection, No Pedal Edema, Normal Capillary Refill Peripheral Pulses: 2+: Dorsalis Pedis (L), Dorsalis Pedis (R) Skin: Other (multiple tattoos to UE and back) Neurological: No New Focal Deficit Psy/Mental Status: Alert, Normal Affect, Normal Mood - Problem List & Annotations (1) DKA, type 1 SNOMED Code(s): 561891046 Code(s): E10.10 - TYPE 1 DIABETES MELLITUS WITH KETOACIDOSIS WITHOUT COMA Status: Acute Priority: High Current Visit: Yes Qualifiers: Diabetes mellitus complication detail: without coma Qualified Code(s): E10.10 - Type 1 diabetes mellitus with ketoacidosis without coma (2) Nausea and vomiting SNOMED Code(s): 95373391 Code(s): R11.2 - NAUSEA WITH VOMITING, UNSPECIFIED Status: Acute Priority : High Current Visit: Yes Qualifiers: Vomiting type: unspecified Vomiting Intractability: intractable Qualified Code(s): R11.2 - Nausea with vomiting, unspecified (3) Bronchitis SNOMED Code(s): 08960609 Code(s): J40 - BRONCHITIS, NOT SPECIFIED ACUTE OR CHRONIC Status: Acute Priority: High Current Visit: Yes - Problem List Review Problem List Initiated/Reviewed/Updated: Yes - My Orders Last 24 Hours: My Active Orders 04/11/17 09:00 Patient Status [ADT] Routine 04/11/17 11:17 Consult to Diabetic Nurse Specialist [CONS] Routine 04/11/17 13:42 RT Aerosol Therapy [RC] .PRN Albuterol [Proventil Neb Soln] 2.5 mg NEB Q6HRRT PRN 04/11/17 14:00 Famotidine [Pepcid] 20 mg PO BID 04/11/17 15:39 RT Arterial Blood Gases, ABG [RC] Click to Edit - Plan Plan:: I/P: DKA in type 1 DM -Triggered by acute URI, evolving to N/V(DKA) -Had prior been on pump but has not had pump now for 2-3 months, has been dosing SSI of 15U in morning and SSI based on sugar and carbs at mealtimes. -Patient on insulin drip with D5NS until AG closes. -Hourly Accuchecks; Q4h BMP -A1C 9.2 -CDE- did visit with patient -From [place], moved to [place] within last 3 months- no PCP or CDE in [place] currently. Will recommend f/up with Dr. Merchant after discharge to establish IM/PCP locally and also with CDE Karolina Hathaway for his pump per Hospital CDE recommendations. Bronchitis- improved -Zithromax -Albuterol SVN and PRN -Mucinex, tessalon perles, prometh with codeine cough syrup -Repeat CXR this morning unremarkable for pneumonia or other acute findings Other: GI prophylax DVT prophylax- ambulate CM/SW for assist with DC planning Once AG closes will be able to advance diet. Likely discharge home tomorrow if AG closes and tolerates meals. Patient is Full Code status.
[2017-04-12] MEDS: Azithromycin 500 MG in Sodium Chloride 0.9% 250 ML IV SCH (08:34)
[2017-04-12] MEDS: guaiFENesin 600 MG Tab.ER PO SCH ×2 (08:49→21:02)
[2017-04-12] MEDS: Magnesium Oxide 400 MG Tab PO SCH ×2 (08:49→21:02)
[2017-04-12] MEDS: Famotidine 20 MG Tab PO SCH ×2 (08:49→21:02)
[2017-04-12] MEDS: Sodium Chloride 0.9% 1,000 ML IV SCH (21:03)
[2017-04-12] MEDS ORDERED: Sodium Chloride 0.9% 1,000 ML IV SCH (21:15)
[2017-04-12] MEDS ORDERED: Insulin Detemir 100 Units/ML 3 ML Pen SUBCUT ONE (22:19)
[2017-04-12] MEDS ORDERED: Potassium Chloride 20 MEQ Tab.ER PO ONE (22:29)
[2017-04-12] MEDS ORDERED: Insulin Detemir 100 Units/ML 3 ML Pen SUBCUT SCH (22:30)
[2017-04-13] MEDS ORDERED: Sodium Chloride 0.9% 0 ML ONE (01:10)
[2017-04-13] MEDS: Dextrose 5%-0.9% NaCl 1,000 ML IV SCH (01:22)
[2017-04-13] MEDS ORDERED: Sodium Chloride 0.9% 100 ML ONE (01:27)
[2017-04-13] MEDS ORDERED: Potassium Chloride 20 MEQ Tab.ER PO ONE (07:39)
--- NOTE | 2017-04-13 07:39 | PCM.PN ---
- General Info Date of Service: 04/13/17 Admission Dx/Problem (Free Text): DKA Subjective Update: Follow Up Functional Status: Reports: Pain Controlled, Tolerating Diet, Ambulating, Urinating. Denies: New Symptoms - Review of Systems General: Denies: Fever, Weakness, Fatigue, Malaise, Chills, Night Sweats HEENT: Reports: No Symptoms Pulmonary: Denies: Shortness of Breath Cardiovascular: Denies: Chest Pain, Palpitations Gastrointestinal: Denies: Abdominal Pain, Decreased Appetite, Diarrhea, Nausea, Vomiting Genitourinary: Reports: No Symptoms Musculoskeletal: Reports: No Symptoms Skin: Denies: Cyanosis, Jaundice, Mottled, Diaphoresis, Rash Neurological: Denies: Confusion, Difficulty Walking, Weakness, Gait Disturbance Psychiatric: Denies: Depression, Anxiety, Agitation, Hallucinations Systems Review Comment:: No significant overnight or acute issues. His AG finally resolved this morning. He has been off insulin drip. However his K is down at 2.9. He has no new complaints. - Patient Data Vitals - Most Recent: Last Vital Signs Temp 35.6 C 04/13/17 04:00 Pulse 66 04/13/17 04:00 Resp 15 04/13/17 04:00 BP 125/76 04/13/17 04:00 Pulse Ox 100 04/13/17 04:00 Weight - Most Recent: 105.868 kg I&O - Last 24 Hours: Intake & Output 04/12/17 04/13/17 04/13/17 22:59 06:59 14:59 Intake Total 1491 1966 Output Total 1250 Balance 1491 716 Lab Results Last 24 Hours: Laboratory Results - last 24 hr 04/12/17 04/12/17 04/12/17 Range/Units 05:45 08:09 09:05 Sodium 141 (136-145) mEq/L Potassium 3.8 (3.5-5.1) mEq/L Chloride 109 H (98-107) mEq/L Carbon Dioxide 15 L (21-32) mEq/L Anion Gap 20.8 H (5-15) BUN 6 L (7-18) mg/dL Creatinine 1.1 (0.7-1.3) mg/dL Est Cr Clr Drug Dosing 112.68 mL/min Estimated GFR (MDRD) > 60 (>60) mL/min BUN/Creatinine Ratio 5.5 L (14-18) Glucose 136 H (74-106) mg/dL POC Glucose 133 H 160 H (70-105) mg/dL Calcium 8.5 (8.5-10.1) mg/dL 04/12/17 04/12/17 04/12/17 Range/Units 10:16 11:04 12:07 Sodium (136-145) mEq/L Potassium (3.5-5.1) mEq/L Chloride (98-107) mEq/L Carbon Dioxide (21-32) mEq/L Anion Gap (5-15) BUN (7-18) mg/dL Creatinine (0.7-1.3) mg/dL Est Cr Clr Drug Dosing mL/min Estimated GFR (MDRD) (>60) mL/min BUN/Creatinine Ratio (14-18) Glucose (74-106) mg/dL POC Glucose 147 H 171 H 157 H (70-105) mg/dL Calcium (8.5-10.1) mg/dL 04/12/17 04/12/17 04/12/17 Range/Units 12:47 13:07 14:02 Sodium 138 (136-145) mEq/L Potassium 3.7 (3.5-5.1) mEq/L Chloride 108 H (98-107) mEq/L Carbon Dioxide 16 L (21-32) mEq/L Anion Gap 17.7 H (5-15) BUN 6 L (7-18) mg/dL Creatinine 1.0 (0.7-1.3) mg/dL Est Cr Clr Drug Dosing 123.94 mL/min Estimated GFR (MDRD) > 60 (>60) mL/min BUN/Creatinine Ratio 6.0 L (14-18) Glucose 151 H (74-106) mg/dL POC Glucose 154 H 142 H (70-105) mg/dL Calcium 8.8 (8.5-10.1) mg/dL 04/12/17 04/12/17 04/12/17 Range/Units 15:05 16:00 16:09 Sodium 139 (136-145) mEq/L Potassium 3.5 (3.5-5.1) mEq/L Chloride 108 H (98-107) mEq/L Carbon Dioxide 18 L (21-32) mEq/L Anion Gap 16.5 H (5-15) BUN 5 L (7-18) mg/dL Creatinine 1.0 (0.7-1.3) mg/dL Est Cr Clr Drug Dosing 123.94 mL/min Estimated GFR (MDRD) > 60 (>60) mL/min BUN/Creatinine Ratio 5.0 L (14-18) Glucose 144 H (74-106) mg/dL POC Glucose 189 H 154 H (70-105) mg/dL Calcium 8.7 (8.5-10.1) mg/dL 04/12/17 04/12/17 04/12/17 Range/Units 17:20 18:06 19:02 Sodium (136-145) mEq/L Potassium (3.5-5.1) mEq/L Chloride (98-107) mEq/L Carbon Dioxide (21-32) mEq/L Anion Gap (5-15) BUN (7-18) mg/dL Creatinine (0.7-1.3) mg/dL Est Cr Clr Drug Dosing mL/min Estimated GFR (MDRD) (>60) mL/min BUN/Creatinine Ratio (14-18) Glucose (74-106) mg/dL POC Glucose 141 H 168 H 159 H (70-105) mg/dL Calcium (8.5-10.1) mg/dL 04/12/17 04/12/17 04/12/17 Range/Units 19:59 20:00 21:01 Sodium 141 (136-145) mEq/L Potassium 3.3 L (3.5-5.1) mEq/L Chloride 108 H (98-107) mEq/L Carbon Dioxide 19 L (21-32) mEq/L Anion Gap 17.3 H (5-15) BUN 6 L (7-18) mg/dL Creatinine 1.0 (0.7-1.3) mg/dL Est Cr Clr Drug Dosing 123.94 mL/min Estimated GFR (MDRD) > 60 (>60) mL/min BUN/Creatinine Ratio 6.0 L (14-18) Glucose 151 H (74-106) mg/dL POC Glucose 157 H 179 H (70-105) mg/dL Calcium 8.8 (8.5-10.1) mg/dL 04/12/17 04/12/17 04/13/17 Range/Units 22:24 23:17 00:35 Sodium 142 (136-145) mEq/L Potassium 3.0 L (3.5-5.1) mEq/L Chloride 109 H (98-107) mEq/L Carbon Dioxide 20 L (21-32) mEq/L Anion Gap 16.0 H (5-15) BUN 5 L (7-18) mg/dL Creatinine 1.0 (0.7-1.3) mg/dL Est Cr Clr Drug Dosing 123.94 mL/min Estimated GFR (MDRD) > 60 (>60) mL/min BUN/Creatinine Ratio 5.0 L (14-18) Glucose 88 (74-106) mg/dL POC Glucose 136 H 118 H (70-105) mg/dL Calcium 8.8 (8.5-10.1) mg/dL 04/13/17 04/13/17 04/13/17 Range/Units 00:38 02:04 03:04 Sodium (136-145) mEq/L Potassium (3.5-5.1) mEq/L Chloride (98-107) mEq/L Carbon Dioxide (21-32) mEq/L Anion Gap (5-15) BUN (7-18) mg/dL Creatinine (0.7-1.3) mg/dL Est Cr Clr Drug Dosing mL/min Estimated GFR (MDRD) (>60) mL/min BUN/Creatinine Ratio (14-18) Glucose (74-106) mg/dL POC Glucose 89 64 L 87 (70-105) mg/dL Calcium (8.5-10.1) mg/dL 04/13/17 04/13/17 04/13/17 Range/Units 04:08 04:56 04:59 Sodium 143 (136-145) mEq/L Potassium 2.9 L (3.5-5.1) mEq/L Chloride 111 H (98-107) mEq/L Carbon Dioxide 22 (21-32) mEq/L Anion Gap 12.9 (5-15) BUN 5 L (7-18) mg/dL Creatinine 0.9 (0.7-1.3) mg/dL Est Cr Clr Drug Dosing 137.72 mL/min Estimated GFR (MDRD) > 60 (>60) mL/min BUN/Creatinine Ratio 5.6 L (14-18) Glucose 92 (74-106) mg/dL POC Glucose 96 102 (70-105) mg/dL Calcium 8.3 L (8.5-10.1) mg/dL Beny Results Last 24 Hours: Microbiology 04/11/17 09:13 Streptococcus pneumoniae Antigen (M - Final Urine Med Orders - Current: Current Medications Acetaminophen (Tylenol) 650 mg PO Q6H PRN PRN Reason: Pain/Fever Albuterol (Proventil Neb Soln) 2.5 mg NEB Q6HRRT PRN PRN Reason: wheezing, cough, SOB Benzonatate (Tessalon Perles) 100 mg PO TID PRN PRN Reason: Cough Last Admin: 04/11/17 09:09 Dose: 100 mg Famotidine (Pepcid) 20 mg PO BID ALEJANDRA Last Admin: 04/12/17 21:02 Dose: 20 mg Guaifenesin (Mucinex) 1,200 mg PO BID ALEJANDRA Last Admin: 04/12/17 21:02 Dose: 1,200 mg Guaifenesin/Codeine Phosphate (Robitussin Ac) 5 ml PO Q4H PRN PRN Reason: Cough Last Admin: 04/11/17 23:05 Dose: 5 ml Azithromycin 500 mg/ Sodium (Chloride) 250 mls @ 250 mls/hr IV Q24H ALEJANDRA Last Admin: 04/12/17 08:34 Dose: 250 mls/hr Insulin Human Regular 100 unit (/ Sodium Chloride) 100 mls @ 0 mls/hr IV TITRATE ALEJANDRA; 0.1 UNITS/KG/HR PRN Reason: Protocol Last Titration: 04/13/17 05:46 Dose: 0 units/kg/hr, 0 mls/hr Dextrose/Sodium Chloride (Dextrose 5%-Normal Saline) 1,000 mls @ 125 mls/hr IV ASDIRECTED ALEJANDRA Last Infusion: 04/13/17 05:46 Dose: 0 mls/hr Insulin Detemir (Levemir) 0 unit SUBCUT DAILY ALEJANDRA Magnesium Oxide (Magnesium Oxide) 400 mg PO BID ALEJANDRA Last Admin: 04/12/17 21:02 Dose: 400 mg Ondansetron HCl (Zofran) 4 mg IVPUSH Q8H PRN PRN Reason: Nausea/Vomiting Last Admin: 04/11/17 08:59 Dose: 4 mg Temazepam (Restoril) 15 mg PO BEDTIME PRN PRN Reason: Sleep Discontinued Medications Albuterol (Proventil Neb Soln) 2.5 mg NEB ONETIME ONE Stop: 04/11/17 13:43 Last Admin: 04/11/17 13:56 Dose: 2.5 mg Sodium Chloride (Normal Saline) 1,000 mls @ 999 mls/hr IV ONETIME ONE Stop: 04/10/17 21:53 Last Admin: 04/10/17 20:58 Dose: 999 mls/hr Sodium Chloride (Normal Saline) 1,000 mls @ 999 mls/hr IV ONETIME ONE Stop: 04/10/17 23:22 Last Admin: 04/10/17 22:26 Dose: 999 mls/hr Sodium Chloride (Normal Saline) Confirm Administered Dose 1,000 mls @ as directed .ROUTE .STK-MED ONE Stop: 04/10/17 23:35 Last Admin: 04/10/17 23:41 Dose: Not Given Sodium Chloride (Normal Saline) 1,000 mls @ 999 mls/hr IV ONETIME ONE Stop: 04/11/17 00:39 Last Admin: 04/10/17 23:44 Dose: 999 mls/hr Sodium Chloride (Normal Saline) 1,000 mls @ 250 mls/hr IV ASDIRECTED ALEJANDRA Last Admin: 04/12/17 21:03 Dose: 150 mls/hr Sodium Chloride (Normal Saline) 1,000 mls @ 999 mls/hr IV ONETIME ONE Stop: 04/11/17 09:43 Last Admin: 04/11/17 09:02 Dose: 999 mls/hr Magnesium Sulfate 2 gm/ Premix 50 mls @ 25 mls/hr IV ONETIME ONE Stop: 04/11/17 11:59 Last Admin: 04/11/17 10:03 Dose: 25 mls/hr Insulin Human Regular 100 unit (/ Sodium Chloride) 100 mls @ 0 mls/hr IV TITRATE ALEJANDRA; 0.1 UNITS/KG/HR PRN Reason: Protocol Sodium Chloride (Normal Saline) 1,000 mls @ 999 mls/hr IV ONETIME ONE Stop: 04/11/17 11:17 Last Admin: 04/11/17 12:41 Dose: 999 mls/hr Sodium Chloride (Normal Saline) 1,000 mls @ 150 mls/hr IV ASDIRECTED ALEJANDRA Sodium Chloride (Normal Saline) Confirm Administered Dose 100 mls @ as directed .ROUTE .STK-MED ONE Stop: 04/13/17 01:11 Last Admin: 04/13/17 01:32 Dose: Not Given Sodium Chloride (Normal Saline) Confirm Administered Dose 100 mls @ as directed .ROUTE .STK-MED ONE Stop: 04/13/17 01:28 Last Admin: 04/13/17 02:06 Dose: Not Given Insulin Aspart (Novolog) 0 unit SUBCUT QIDACANDBED [facility] PRN Reason: Protocol Last Admin: 04/11/17 13:28 Dose: Not Given Insulin Aspart (Novolog) 10 unit SUBCUT NOW STA Stop: 04/11/17 10:17 Last Admin: 04/11/17 10:59 Dose: 10 units Insulin Detemir (Levemir) 0 unit SUBCUT ONETIME ONE Stop: 04/12/17 22:20 Last Admin: 04/13/17 01:34 Dose: Not Given Insulin Detemir (Levemir) 0 unit SUBCUT DAILY [facility] Last Admin: 04/12/17 22:41 Dose: 10 units Ondansetron HCl (Zofran) 4 mg IVPUSH ONETIME ONE Stop: 04/10/17 20:54 Last Admin: 04/10/17 20:58 Dose: 4 mg Ondansetron HCl (Zofran) 4 mg IVPUSH ONETIME ONE Stop: 04/11/17 08:51 Last Admin: 04/11/17 09:44 Dose: Not Given Potassium Chloride (Klor-Con M20) 60 meq PO ONETIME ONE Stop: 04/12/17 22:30 Last Admin: 04/12/17 22:39 Dose: 60 meq - Exam General: Alert, Oriented, Cooperative, No Acute Distress HEENT: Pupils Equal, Pupils Reactive, EOMI, Mucous Membr. Moist/[place] Neck: Supple, Trachea Midline, No JVD, +2 Carotid Pulse wo Bruit Lungs: Clear to Auscultation, Normal Respiratory Effort Cardiovascular: Regular Rate, Regular Rhythm GI/Abdominal Exam: Normal Bowel Sounds, Soft, Non-Tender, No Organomegaly, No Distention, No Abnormal Bruit, No Mass (Male) Exam: Deferred Back Exam: Normal Inspection, Full Range of Motion Extremities: Normal Inspection, Normal Range of Motion, Non-Tender, No Pedal Edema, Normal Capillary Refill Peripheral Pulses: 3+: Posterior Tibial (L), Posterior Tibial (R), Dorsalis Pedis (L), Dorsalis Pedis (R) Skin: Warm, Dry, Intact Neurological: No New Focal Deficit Psy/Mental Status: Alert, Normal Affect, Normal Mood - Problem List Review Problem List Initiated/Reviewed/Updated: Yes - My Orders Last 24 Hours: My Active Orders 04/13/17 09:00 Insulin Detemir [Levemir] 0 unit SUBCUT DAILY 04/13/17 Breakfast Consistent Carbohydrate Diet [DIET] - Plan Plan:: Assessment/Plan: Acute: DKA in Type 1 DM - Triggered by acute URI, evolving to N/V(DKA) - Had prior been on pump but has not had pump now for 2-3 months, has been dosing SSI of 15U in morning and SSI based on sugar and carbs at mealtimes - Now off insulin drip - Accucheck QID AC/HS - A1C 9.2 - CDE- did visit with patient - From [place], moved to [place] within last 3 months- no PCP or CDE in [place] currently. Will recommend f/up with Dr. Merchant after discharge to establish IM/PCP locally and also with CDE Karolina Hathaway for his pump per Hospital CDE recommendations - TDI is almost 60 units; will start Levermir 25 units SUbQ BID with Medium level ISS coverage Bronchitis/URI, Continue to improve - on IV Zithromax - Albuterol ALEJANDRA and PRN - Mucinex, tessalon perles, prometh with codeine cough syrup - Strep/Mycoplasma pneumonia Ag/Influenza screening: negative - Repeat CXR shows unremarkable for pneumonia or other acute findings Hypokalemia - K 2.9 - K oral and intravenous supplement - Repeat level at 1300 - Monitor Plan: He is clinically stable Discontinue DKA Protocol Resume home insulin regimen ADA diet GI prophylaxis: H2B DVT prophylaxis- Low risk/he is ambulatory; SCDs if needed CM/SW for assist with DC planning Additional orders as above Patient is Full Code status Possible d/c in AM
[2017-04-13] MEDS: Potassium Chloride 10 MEQ in Premix Bag 1 BAG IV SCH ×2 (08:30→09:20)
[2017-04-13] MEDS: Famotidine 20 MG Tab PO SCH ×2 (08:43→20:04)
[2017-04-13] MEDS: guaiFENesin 600 MG Tab.ER PO SCH ×2 (08:43→20:04)
[2017-04-13] MEDS: Magnesium Oxide 400 MG Tab PO SCH ×2 (08:43→20:04)
[2017-04-13] MEDS: Azithromycin 500 MG in Sodium Chloride 0.9% 250 ML IV SCH (08:44)
[2017-04-13] MEDS ORDERED: Insulin Detemir 100 Units/ML 3 ML Pen SUBCUT SCH (09:00)
[2017-04-13] MEDS: Insulin Aspart 100 Units/ML 3 ML Pen SUBCUT SCH ×4 (11:18→21:03)
[2017-04-13] MEDS: Insulin Detemir 100 Units/ML 3 ML Pen SUBCUT SCH (20:05)
[2017-04-14] MEDS ORDERED: Insulin Aspart 100 Units/ML 3 ML Pen SUBCUT SCH
[2017-04-14] MEDS ORDERED: Insulin Detemir 100 Units/ML 3 ML Pen SUBCUT SCH
--- NOTE | 2017-04-14 07:37 | PCM.DCSUM1 ---
Discharge Summary - Hospital Course Brief History: Emily is a 26 yo male patient with hx of type 1 DM since the age of 12. He has been sick with URI type symptoms x 2 weeks, then developed N/ V 3 days ago and could not stop. He came into ED for eval and tx. He was initially placed in observation for hydration and hyperglycemia but further tests showed he was actually in DKA. - Discharge Data Discharge Date: 04/14/17 Discharge Disposition: Home, Self-Care 01 Condition: Good - Discharge Diagnosis/Problem(s) (1) Bronchitis SNOMED Code(s): 32082724 ICD Code: J40 - BRONCHITIS, NOT SPECIFIED ACUTE OR CHRONIC Status: Acute Priority: High (2) DKA (diabetic ketoacidoses) SNOMED Code(s): 287150813 ICD Code: E13.10 - OTH DIABETES MELLITUS WITH KETOACIDOSIS WITHOUT COMA Status: Resolved Priority: High Qualifiers: Diabetes mellitus type: type 1 Diabetes mellitus complication detail: without coma Qualified Code(s): E10.10 - Type 1 diabetes mellitus with ketoacidosis without coma - Patient Summary/Data Operative Procedure(s) Performed: None Complications: None Consults: Consultations 04/11/17 11:17 Consult to Diabetic Nurse Specialist [CONS] Routine Labs Pending at D/C: None Recommended Follow-up Testing/Procedures: None Planned Operative Procedure(s) after DC: None Hospital Course: Patient was primarily admitted for URI associated with hyperglycemia. He received initial treatment and was admitted under observation. However with additional testing, he was found to be in DKA. Therefore he was moved to the unit and immediately placed on DKA protocol. As for his URI, he received a short course of antibiotic along with respiratory care. He was influenza, Strep and Mycoplasma pneumonia negative. His hospital course was uncomplicated and he continued to improve up until the day of discharge. The rest of his chronic medical illness remained stable during this admission. Once stable, he was discharged home with LA and SA insulin regimen. He was advised to check his serum glucose 4x/day and to show his log to his PCP on follow up appointment. He was further advised to come back or seek immediate care should his symptoms persist or gets worse. - Patient Instructions Diet: Usual Diet as Tolerated, Diabetic Diet Activity: As Tolerated Driving: May Drive Today Showering/Bathing: May Shower Notify Provider of: Fever, Increased Pain, Nausea and/or Vomiting Other/Special Instructions: - Please take all medications as directed. - We recommend you check your blood sugar 4x a day during each meal and at bedtime. - Keep all follow up appointments as scheduled. - Call or follow up with your family doctor after discharge should you have any further concerns or quesions - Discharge Plan Prescriptions/Med Rec: Insulin Aspart [Novolog] See Protocol SQ ASDIRECTED PRN #1 ml PRN Reason: Hyperglycemia Insulin Detemir [Levemir] 25 unit SUBCUT BID #1 pen Home Medications: Home Meds Insulin Aspart [Novolog] See Protocol SQ ASDIRECTED PRN #1 ml 04/14/17 [Rx] Insulin Detemir [Levemir] 25 unit SUBCUT BID #1 pen 04/14/17 [Rx] Patient Handouts: Diabetic Ketoacidosis, Blood Glucose Monitoring, Adult Referrals: Karolina Hathaway [Other] (Please call and schedule a follow-up appointment with the early childhood educator aide, Karolina Hathaway within 1 week to consult for further diabetic assistance. ) Octavio Guzmán MD [Physician] - (Please call and schedule a post-hospital follow-up appointment with your primary care doctor, Dr. Guzmán, within 1 week of discharge. ) - Discharge Summary/Plan Comment DC Time >30 min.: Yes (45 mins) Discharge Summary/Plan Comment: Discharge to Home - General Info Date of Service: 04/14/17 Admission Dx/Problem (Free Text: DKA Subjective Update: Follow Up Functional Status: Reports: Pain Controlled, Tolerating Diet, Ambulating, Urinating. Denies: New Symptoms - Review of Systems General: Denies: Fever, Weakness, Fatigue, Malaise, Chills HEENT: Reports: No Symptoms. Denies: Visual Changes Pulmonary: Denies: Hemoptysis Gastrointestinal: Denies: Abdominal Pain, Diarrhea, Nausea, Vomiting Genitourinary: Reports: No Symptoms, Incontinence Skin: Denies: Cyanosis, Rash Neurological: Denies: Confusion, Difficulty Walking, Weakness, Gait Disturbance Psychiatric: Denies: Depression, Anxiety, Agitation, Hallucinations Systems Review Comment: No overnight or acute issues. He is doing relatively well. He slept good and feels pretty good this morning. He has no new complaints. - Patient Data Vitals - Most Recent: Last Vital Signs Temp 36.7 C 04/13/17 20:13 Pulse 78 04/13/17 20:13 Resp 14 04/13/17 20:13 BP 133/85 04/13/17 20:13 Pulse Ox 99 04/13/17 20:13 Weight - Most Recent: 103.011 kg I&O - Last 24 hours: Intake & Output 04/13/17 04/14/17 04/14/17 22:59 06:59 14:59 Intake Total 800 1200 Balance 800 1200 Lab Results - Last 24 hrs: Laboratory Results - last 24 hr 04/13/17 04/13/17 04/13/17 Range/Units 07:38 11:16 13:11 Potassium 4.3 (3.5-5.1) mEq/L POC Glucose 220 H 300 H (70-105) mg/dL 04/13/17 04/13/17 04/14/17 Range/Units 17:03 20:03 06:12 Potassium (3.5-5.1) mEq/L POC Glucose 195 H 314 H 180 H (70-105) mg/dL Med Orders - Current: Current Medications Acetaminophen (Tylenol) 650 mg PO Q6H PRN PRN Reason: Pain/Fever Albuterol (Proventil Neb Soln) 2.5 mg NEB Q6HRRT PRN PRN Reason: wheezing, cough, SOB Benzonatate (Tessalon Perles) 100 mg PO TID PRN PRN Reason: Cough Last Admin: 04/11/17 09:09 Dose: 100 mg Famotidine (Pepcid) 20 mg PO BID [facility] Last Admin: 04/13/17 20:04 Dose: 20 mg Guaifenesin (Mucinex) 1,200 mg PO BID [facility] Last Admin: 04/13/17 20:04 Dose: 1,200 mg Guaifenesin/Codeine Phosphate (Robitussin Ac) 5 ml PO Q4H PRN PRN Reason: Cough Last Admin: 04/11/17 23:05 Dose: 5 ml Azithromycin 500 mg/ Sodium (Chloride) 250 mls @ 250 mls/hr IV Q24H [facility] Last Admin: 04/13/17 08:44 Dose: 250 mls/hr Insulin Aspart (Novolog) 0 unit SUBCUT QIDACANDBED [facility] PRN Reason: Protocol Last Admin: 04/13/17 21:03 Dose: Not Given Insulin Detemir (Levemir) 25 unit SUBCUT BID [facility] Last Admin: 04/13/17 20:05 Dose: 25 units Magnesium Oxide (Magnesium Oxide) 400 mg PO BID [facility] Last Admin: 04/13/17 20:04 Dose: 400 mg Ondansetron HCl (Zofran) 4 mg IVPUSH Q8H PRN PRN Reason: Nausea/Vomiting Last Admin: 04/11/17 08:59 Dose: 4 mg Temazepam (Restoril) 15 mg PO BEDTIME PRN PRN Reason: Sleep Discontinued Medications Albuterol (Proventil Neb Soln) 2.5 mg NEB ONETIME ONE Stop: 04/11/17 13:43 Last Admin: 04/11/17 13:56 Dose: 2.5 mg Sodium Chloride (Normal Saline) 1,000 mls @ 999 mls/hr IV ONETIME ONE Stop: 04/10/17 21:53 Last Admin: 04/10/17 20:58 Dose: 999 mls/hr Sodium Chloride (Normal Saline) 1,000 mls @ 999 mls/hr IV ONETIME ONE Stop: 04/10/17 23:22 Last Admin: 04/10/17 22:26 Dose: 999 mls/hr Sodium Chloride (Normal Saline) Confirm Administered Dose 1,000 mls @ as directed .ROUTE .STK-MED ONE Stop: 04/10/17 23:35 Last Admin: 04/10/17 23:41 Dose: Not Given Sodium Chloride (Normal Saline) 1,000 mls @ 999 mls/hr IV ONETIME ONE Stop: 04/11/17 00:39 Last Admin: 04/10/17 23:44 Dose: 999 mls/hr Sodium Chloride (Normal Saline) 1,000 mls @ 250 mls/hr IV ASDIRECTED [facility] Last Admin: 04/12/17 21:03 Dose: 150 mls/hr Sodium Chloride (Normal Saline) 1,000 mls @ 999 mls/hr IV ONETIME ONE Stop: 04/11/17 09:43 Last Admin: 04/11/17 09:02 Dose: 999 mls/hr Magnesium Sulfate 2 gm/ Premix 50 mls @ 25 mls/hr IV ONETIME ONE Stop: 04/11/17 11:59 Last Admin: 04/11/17 10:03 Dose: 25 mls/hr Insulin Human Regular 100 unit (/ Sodium Chloride) 100 mls @ 0 mls/hr IV TITRATE ALEJANDRA; 0.1 UNITS/KG/HR PRN Reason: Protocol Sodium Chloride (Normal Saline) 1,000 mls @ 999 mls/hr IV ONETIME ONE Stop: 04/11/17 11:17 Last Admin: 04/11/17 12:41 Dose: 999 mls/hr Insulin Human Regular 100 unit (/ Sodium Chloride) 100 mls @ 0 mls/hr IV TITRATE ALEJANDRA; 0.1 UNITS/KG/HR PRN Reason: Protocol Last Titration: 04/13/17 05:46 Dose: 0 units/kg/hr, 0 mls/hr Dextrose/Sodium Chloride (Dextrose 5%-Normal Saline) 1,000 mls @ 125 mls/hr IV ASDIRECTED ALEJANDRA Last Infusion: 04/13/17 05:46 Dose: 0 mls/hr Sodium Chloride (Normal Saline) 1,000 mls @ 150 mls/hr IV ASDIRECTED ALEJANDRA Sodium Chloride (Normal Saline) Confirm Administered Dose 100 mls @ as directed .ROUTE .STK-MED ONE Stop: 04/13/17 01:11 Last Admin: 04/13/17 01:32 Dose: Not Given Sodium Chloride (Normal Saline) Confirm Administered Dose 100 mls @ as directed .ROUTE .STK-MED ONE Stop: 04/13/17 01:28 Last Admin: 04/13/17 02:06 Dose: Not Given Potassium Chloride 10 meq/ (Premix) 100 mls @ 100 mls/hr IV Q1H ALEJANDRA Stop: 04/13/17 09:44 Last Admin: 04/13/17 09:20 Dose: 100 mls/hr Insulin Aspart (Novolog) 0 unit SUBCUT QIDACANDBED ALEJANDRA PRN Reason: Protocol Last Admin: 04/11/17 13:28 Dose: Not Given Insulin Aspart (Novolog) 10 unit SUBCUT NOW STA Stop: 04/11/17 10:17 Last Admin: 04/11/17 10:59 Dose: 10 units Insulin Detemir (Levemir) 0 unit SUBCUT ONETIME ONE Stop: 04/12/17 22:20 Last Admin: 04/13/17 01:34 Dose: Not Given Insulin Detemir (Levemir) 0 unit SUBCUT DAILY [facility] Last Admin: 04/12/17 22:41 Dose: 10 units Insulin Detemir (Levemir) 0 unit SUBCUT DAILY ALEJANDRA Last Admin: 04/13/17 08:41 Dose: 25 unit Ondansetron HCl (Zofran) 4 mg IVPUSH ONETIME ONE Stop: 04/10/17 20:54 Last Admin: 04/10/17 20:58 Dose: 4 mg Ondansetron HCl (Zofran) 4 mg IVPUSH ONETIME ONE Stop: 04/11/17 08:51 Last Admin: 04/11/17 09:44 Dose: Not Given Potassium Chloride (Klor-Con M20) 60 meq PO ONETIME ONE Stop: 04/12/17 22:30 Last Admin: 04/12/17 22:39 Dose: 60 meq Potassium Chloride (Klor-Con M20) 60 meq PO ONETIME ONE Stop: 04/13/17 07:40 Last Admin: 04/13/17 08:40 Dose: 60 meq - Exam General: Reports: Alert, Oriented, Cooperative, No Acute Distress HEENT: Reports: Pupils Equal, Pupils Reactive, EOMI, Mucous Membr. Moist/[place] Neck: Reports: Supple, Trachea Midline, No JVD Lungs: Reports: Clear to Auscultation, Normal Respiratory Effort, Rhonchi Cardiovascular: Reports: Regular Rate, Regular Rhythm GI/Abdominal Exam: Normal Bowel Sounds, Soft, Non-Tender, No Organomegaly, No Distention, No Abnormal Bruit (Male) Exam: Deferred Rectal (Males) Exam: Deferred Back Exam: Reports: Normal Inspection, Full Range of Motion Extremities: Normal Inspection, Normal Range of Motion, Non-Tender, No Pedal Edema, Normal Capillary Refill Skin: Reports: Warm, Dry, Intact Neurological: Reports: No New Focal Deficit Psy/Mental Status: Reports: Alert, Normal Affect, Normal Mood *Q Meaningful Use (DIS) - VTE *Q VTE Criteria *Q: - Stroke *Q Stroke Criteria *Q: - AMI *Q AMI Criteria *Q:
[2017-04-14] MEDS: Insulin Aspart 100 Units/ML 3 ML Pen SUBCUT SCH ×2 (08:36→11:37)
[2017-04-14] MEDS: Insulin Detemir 100 Units/ML 3 ML Pen SUBCUT SCH (08:38)
[2017-04-14] MEDS: Magnesium Oxide 400 MG Tab PO SCH (08:39)
[2017-04-14] MEDS: guaiFENesin 600 MG Tab.ER PO SCH (08:40)
[2017-04-14] MEDS: Famotidine 20 MG Tab PO SCH (08:40)
[2017-04-14] MEDS: Azithromycin 500 MG in Sodium Chloride 0.9% 250 ML IV SCH (08:41)
[2017-04-14] MEDS ORDERED: Pneumococcal Polyvalent-23 Vaccine 0.5 ML SDV IM ONE (09:42)
[2017-04-14] MEDS ORDERED: FLU Vacc QS 2017-18 (6mos UP)/PF 60 MCG/0.5 ML Syringe IM ONE (09:42)
--- NOTE | 2017-04-22 13:16 | PCM.HP ---
H&P History of Present Illness - General Date of Service: 04/11/17 Admit Problem/Dx: DKA Source of Information: Patient History Limitations: Reports: No Limitations - History of Present Illness Initial Comments - Free Text/Narative: Emily is a 26yo male patient with hx of type 1 DM since the age of 12. He has been sick with URI type symptoms x 2 weeks, then developed N/V 3 days ago and could not stop. He came into ED last night for eval and tx. He was initially placed into observation for hydration and hyperglycemia. AG was 25 on placement into observation. This morning eval of patient reveals he is still nauseous and vomited 1 hour prior to me seeing him. He is coughing with productive sputum and states he "feels worse today" than he did yesterday. He rec'd 3L of IVF and SSI overnight. AG was still at 25 this morning. ABG was also obtained showing PH of 7.2, pCO2 of 15.5 and pO2 of 107, HCO3 is 5.8, BE -21.3. Serum osmolality is 307 , ketones were pending. Decision was made at that point to transfer patient to ICU for DKA protocol. He rec'd bolus insulin per protocol, blood sugars Q1H have improved, has not needed insulin drip as of yet. Recheck of BMP is pending. Patient is Full Code status. PCP is not in the area. He is from [place] originally, been in [place] x 3 months. - Related Data Allergies/Adverse Reactions: Allergies Allergy/AdvReac Type Severity Reaction Status Date / Time No Known Allergies Allergy Verified 04/10/17 20:11 Home Medications: Home Meds Insulin Aspart [Novolog] See Protocol SQ ASDIRECTED PRN #1 ml 04/14/17 [Rx] Insulin Detemir [Levemir] 25 unit SUBCUT BID #1 pen 04/14/17 [Rx] Past Medical History HEENT History: Reports: Impaired Vision Other HEENT History: wears corrective lenses Endocrine/Metabolic History: Reports: Diabetes, Type I - Infectious Disease History Infectious Disease History: Reports: Chicken Pox - Past Surgical History HEENT Surgical History: Reports: None Endocrine Surgical History: Reports: None Social & Family History - Family History Family Medical History: Noncontributory - Tobacco Use Smoking Status *Q: Never Smoker Second Hand Smoke Exposure: No - Caffeine Use Caffeine Use: Reports: Coffee Other Caffeine Use: couple cups a day - Alcohol Use Days Per Week of Alcohol Use: 0 - Recreational Drug Use Recreational Drug Use: No - Living Situation & Occupation Living situation: Reports: Single, Alone Occupation: Employed ([employer]) H&P Review of Systems - Review of Systems: Review Of Systems: See Below General: Reports: Fever, Chills, Malaise, Weakness, Fatigue, Night Sweats, Diaphoresis, Decreased Appetite HEENT: Reports: No Symptoms Pulmonary: Reports: Shortness of Breath, Wheezing, Pleuritic Chest Pain, Cough Cardiovascular: Reports: Dyspnea on Exertion. Denies: Chest Pain, Palpitations , Lightheadedness Gastrointestinal: Reports: Nausea, Vomiting. Denies: Abdominal Pain Genitourinary: Reports: No Symptoms Musculoskeletal: Reports: Back Pain Psychiatric: Reports: No Symptoms Neurological: Reports: No Symptoms Exam - Exam Exam: See Below - Vital Signs Vital Signs: Last Vital Signs Temp 97.9 F 04/14/17 06:10 Pulse 69 04/14/17 06:10 Resp 12 04/14/17 06:10 BP 130/77 04/14/17 06:10 Pulse Ox 99 04/14/17 06:10 Weight: 227 lb 1.6 oz - Exam Quality Assessment: DVT Prophylaxis General: Alert, Cooperative, Mild Distress HEENT: Conjunctiva Clear, EOMI, Hearing Intact, Mucosa Moist & [place], Pupils Equal Neck: Supple Lungs: Normal Respiratory Effort, Decreased Breath Sounds (bases), Rhonchi, Wheezing Cardiovascular: Regular Rate, Regular Rhythm GI/Abdominal Exam: Normal Bowel Sounds, Soft, Non-Tender (Male) Exam: Deferred Rectal (Males) Exam: Deferred Back Exam: Normal Inspection Extremities: Normal Inspection, No Pedal Edema, Normal Capillary Refill Peripheral Pulses: 2+: Dorsalis Pedis (L), Dorsalis Pedis (R) Skin: Warm, Dry Neurological: Cranial Nerves Intact Neuro Extensive - Mental Status: Alert, Oriented x3, Normal Mood/Affect, Normal Cognition, Memory Intact Neuro Extensive - Motor, Sensory, Reflexes: CN II-XII Intact Psychiatric: Alert, Normal Affect, Normal Mood - Patient Data Result Diagrams: 04/12/17 05:45 04/13/17 13:11 *Q Meaningful Use (ADM) - VTE *Q VTE Criteria *Q: - Stroke *Q Stroke Criteria *Q: - AMI *Q AMI Criteria *Q: - Problem List (1) DKA, type 1 SNOMED Code(s): 017276449 ICD Code: E10.10 - TYPE 1 DIABETES MELLITUS WITH KETOACIDOSIS WITHOUT COMA Status: Acute Priority: High Qualifiers: Diabetes mellitus complication detail: without coma Qualified Code(s): E10.10 - Type 1 diabetes mellitus with ketoacidosis without coma (2) Nausea and vomiting SNOMED Code(s): 52172385 ICD Code: R11.2 - NAUSEA WITH VOMITING, UNSPECIFIED Status: Acute Priority: High Qualifiers: Vomiting type: unspecified Vomiting Intractability: intractable Qualified Code(s): R11.2 - Nausea with vomiting, unspecified (3) Bronchitis SNOMED Code(s): 74010655 ICD Code: J40 - BRONCHITIS, NOT SPECIFIED ACUTE OR CHRONIC Status: Acute Priority: High Problem List Initiated/Reviewed/Updated: Yes Assessment/Plan Comment:: Assessment/Plan: Acute: DKA in Type 1 DM - Triggered by acute URI, evolving to N/V(DKA) - Had prior been on pump but has not had pump now for 2-3 months, has been dosing SSI of 15U in morning and SSI based on sugar and carbs at mealtimes - DKA protocol with insulin drip to start this morning. NPO until AG closes. -Ketones, Osmolarity-serum and ABG this morning. - A1C - CDE - From [place], moved to [place] within last 3 months- no PCP or CDE in [place] currently. Will recommend f/up with Dr. Merchant after discharge to establish IM/PCP locally and also with CDE Bronchitis/URI, Continue to improve - IV Zithromax - Albuterol ALEJANDRA and PRN - Mucinex, tessalon perles, prometh with codeine cough syrup - Strep/Mycoplasma pneumonia Ag/Influenza screening Plan: Admit to ICU for worsening of blood sugars, status, DKA treatment -Start insulin drip and follow protocol. GI prophylaxis: H2B DVT prophylaxis- Low risk/he is ambulatory; SCDs if needed CM/SW for assist with DC planning---Once AG closes can dc insulin drip and advance diet as tolerated. Additional orders as above Patient is Full Code status
== END 2017-04-14 11:25 | disposition home or self-care (01) | DRG 420 ==
LOC: JD.ED 20:01 → JD.MS 22:40 → OBSVTOIN 04-11 09:00 → JD.ICU 04-11 09:00 → JD.MS 04-13 11:20
PROVIDERS: ADMIT Internal Medicine Cardiovascular Disease; ATTEND Internal Medicine Cardiovascular Disease
PROC: 3E0234Z Introduction of Serum, Toxoid and Vaccine into Muscle, Percutaneous Approach (ICD-10-PCS; principal; 2017-04-14)
DX: E13.10 Other specified diabetes mellitus with ketoacidosis without coma (principal); J40 Bronchitis, not specified as acute or chronic; Z79.4 Long term (current) use of insulin; E87.6 Hypokalemia; R11.2 Nausea with vomiting, unspecified; Z23 Encounter for immunization
CPT/HCPCS: 36415; 36600; 71020; 71020-26; 80048; 80053; 82009; 82803; 82962; 83036; 83605; 83735; 83930; 84132; 85025; 86140; 86738; 87804; 87899; 90686; 90732; 94640; 96361; 96374; 96376; 99284; 99285-25; A9270-GY; G0008; G0009; G0378; J0456; J1815-GY; J1817; J2405; J3475; J3480; J7030; J7040; J7042; J7050

== ENCOUNTER 2017-06-23 13:11 | Emergency (ER) | payer BC ==
--- NOTE | 2017-06-23 13:39 | EDM.PDOC ---
ED HPI GENERAL MEDICAL PROBLEM - General Chief Complaint: Diabetic Complaint Stated Complaint: DKA Time Seen by Provider: 06/23/17 13:39 Source of Information: Reports: Patient History Limitations: Reports: No Limitations - History of Present Illness INITIAL COMMENTS - FREE TEXT/NARRATIVE: Emily is a 26yo male, known to me from prior admission to hospital for DKA. He reports he has had URI symptoms since Saturday - 6 days, he also had his company [employer] Party last evening, was drinking alcohol, quantified as "around a 12 pack and a couple of shots". He ate a large meal, did not take his insulin last night. He woke at 9am with nausea and vomiting, chills and sweats. His blood sugar was "400", he took his usual dose of levimir and novolog at 9. He checked his sugar again at noon and it was 380. He has not been able to stop vomiting this morning, states "I have puked about 20 - 25 times this morning". He is weak , shaky, has a headache and abdominal pain from vomiting along with "so much acid reflux". He is type 1 DM since young teenage years. He states he is originally from [place], here in [place] for work. He works in the [place] [employer]. He is usually very capable and able to manage his diabetes. He was hospitalized a few months ago for DKA associated with URI. Onset: Sudden Onset Date: 06/23/17 Onset Time: 09:00 Location: Reports: Abdomen - Related Data Allergies Allergy/AdvReac Type Severity Reaction Status Date / Time No Known Allergies Allergy Verified 04/10/17 20:11 Home Meds: Home Meds Insulin Aspart [Novolog] See Protocol SQ ASDIRECTED PRN #1 ml 04/14/17 [Rx] Insulin Detemir [Levemir] 25 unit SUBCUT BID #1 pen 04/14/17 [Rx] Past Medical History HEENT History: Reports: Impaired Vision Other HEENT History: wears corrective lenses Endocrine/Metabolic History: Reports: Diabetes, Type I - Infectious Disease History Infectious Disease History: Reports: Chicken Pox - Past Surgical History HEENT Surgical History: Reports: None Endocrine Surgical History: Reports: None Social & Family History - Family History Family Medical History: Noncontributory - Tobacco Use Smoking Status *Q: Never Smoker Second Hand Smoke Exposure: No - Caffeine Use Caffeine Use: Reports: None Other Caffeine Use: couple cups a day - Alcohol Use Days Per Week of Alcohol Use: 0 - Recreational Drug Use Recreational Drug Use: No - Living Situation & Occupation Living situation: Reports: Single, Alone Occupation: Employed ([employer]) ED ROS GENERAL - Review of Systems Review Of Systems: See Below Constitutional: Reports: Chills, Malaise, Weakness, Fatigue, Night Sweats, Diaphoresis, Decreased Appetite. Denies: Fever HEENT: Reports: Throat Pain (s/p vomiting) Respiratory: Reports: Cough (x 5 days) Cardiovascular: Reports: No Symptoms. Denies: Chest Pain, Dyspnea on Exertion, Edema Endocrine: Reports: High Glucose, Polydypsia GI/Abdominal: Reports: Abdominal Pain, Nausea, Vomiting. Denies: Diarrhea : Reports: No Symptoms Musculoskeletal: Reports: No Symptoms Skin: Reports: No Symptoms Neurological: Reports: Dizziness, Headache Psychiatric: Reports: No Symptoms ED EXAM GENERAL NO PERIP PULSE - Physical Exam Exam: See Below Exam Limited By: No Limitations General Appearance: Alert, WD/WN, Mild Distress, Other (mild diaphoretic, red in the face/flushed) Eye Exam: Bilateral Eye: EOMI, PERRL, Other (mild injection bilat) Ears: Normal External Exam, Hearing Grossly Normal Nose: Normal Inspection Throat/Mouth: Normal Inspection, Normal Teeth, Normal Gums, Normal Oropharynx, Other (dry mucous membranes) Head: Atraumatic, Normocephalic Neck: Normal Inspection Respiratory/Chest: No Respiratory Distress, Lungs Clear, Normal Breath Sounds, Other (tachypnea- resp of 20+) Cardiovascular: Normal Peripheral Pulses, Regular Rate, Rhythm, No Edema, No Murmur GI/Abdominal: Soft, No Organomegaly, Tender (epigastrium), Abnormal Bowel Sounds (hyperactive). No: Guarding, Rigid, Rebound, Hepatomegaly, Splenomegaly (Male) Exam: Deferred Rectal (Males) Exam: Deferred Extremities: Normal Inspection, No Pedal Edema, Normal Capillary Refill Neurological: Alert, Oriented, Normal Cognition Psychiatric: Normal Affect, Normal Mood, Anxious (mild) Skin Exam: Warm, Dry, Intact, Diaphoretic (mild) Course - Vital Signs Last Recorded V/S: Last Vital Signs Temp 97.2 F 06/23/17 13:30 Pulse 120 H 06/23/17 13:30 Resp 18 06/23/17 13:30 BP 141/92 H 06/23/17 13:30 Pulse Ox 100 06/23/17 13:30 - Orders/Labs/Meds Orders: Active Orders 24 hr Category Date Time Status Accu Check [Blood Glucose Check, Bedside] [RC] Q1HR Care 06/23/17 16:01 Active EKG Documentation Completion [RC] STAT Care 06/23/17 15:23 Active RT Arterial Blood Gases, ABG [RC] Click to Edit Care 06/23/17 13:46 Active RT Arterial Blood Gases, ABG [RC] Click to Edit Care 06/23/17 17:03 Ordered BASIC METABOLIC PANEL,BMP [CHEM] Stat Lab 06/23/17 16:57 Ordered BLOOD GAS ARTERIAL [BG] Stat Lab 06/23/17 17:03 Ordered DRUG SCREEN, URINE [URCHEM] Stat Lab 06/23/17 16:47 Ordered UA W/MICROSCOPIC [URIN] Stat Lab 06/23/17 15:23 Uncollected Dextrose 5%-0.9% NaCl with KCl [D5 NS with 20 mEq KCl] Med 06/23/17 17:15 Ordered 1,000 ml IV ASDIRECTED Insulin Regular, Human [HumuLIN R] 100 unit Med 06/23/17 17:15 Active Sodium Chloride 0.9% [Normal Saline] 99 ml IV TITRATE Medication Orders Insulin Human Regular 100 unit (/ Sodium Chloride) 100 mls @ 2 mls/hr IV TITRATE ALEJANDRA; 2 UNIT/HR PRN Reason: Protocol Potassium Chloride/Dextrose/Sod Cl (D5 Ns With 20 Meq Kcl) 1,000 mls @ 250 mls/ hr IV ASDIRECTED ALEJANDRA Labs: Laboratory Tests 06/23/17 06/23/17 06/23/17 Range/Units 13:29 13:30 13:30 WBC (4.23-9.07) K/mm3 RBC (4.63-6.08) M/mm3 Hgb (13.7-17.5) gm/L Hct (40.1-51.0) % MCV (79.0-92.2) fl MCH (25.7-32.2) pg MCHC (32.2-35.5) g/dl RDW Std Deviation (35.1-43.9) fL Plt Count (163-337) K/mm3 MPV (9.4-12.3) fl Neut % (Auto) (34.0-67.9) % Lymph % (Auto) (21.8-53.1) % [place] % (Auto) (5.3-12.2) % Eos % (Auto) (0.8-7.0) Baso % (Auto) (0.1-1.2) % Neut # (Auto) (1.78-5.38) K/mm3 Lymph # (Auto) (1.32-3.57) K/mm3 [place] # (Auto) (0.30-0.82) K/mm3 Eos # (Auto) (0.04-0.54) K/mm3 Baso # (Auto) (0.01-0.08) K/mm3 Manual Slide Review Puncture Site ABG pH (7.35-7.45) ABG pCO2 (35.0-45.0) mmHg ABG pO2 (80.0-100.0) mmHg ABG HCO3 (22.0-26.0) meq/L ABG O2 Saturation (96.0-97.0) % ABG Base Excess (-2-2.0) William Test O2 Delivery Device FiO2 (21.00-100.00) % Sodium (136-145) mEq/L Potassium (3.5-5.1) mEq/L Chloride (98-107) mEq/L Carbon Dioxide (21-32) mEq/L Anion Gap (5-15) BUN (7-18) mg/dL Creatinine (0.7-1.3) mg/dL Est Cr Clr Drug Dosing mL/min Estimated GFR (MDRD) (>60) mL/min BUN/Creatinine Ratio (14-18) Glucose (74-106) mg/dL POC Glucose 314 H (70-105) mg/dL Serum Osmolality 318 H (280-300) mosm/kg Calcium (8.5-10.1) mg/dL Magnesium (1.8-2.4) mg/dl Total Bilirubin (0.2-1.0) mg/dL AST (15-37) U/L ALT (16-63) U/L Alkaline Phosphatase (46-116) U/L C-Reactive Protein (<1.0) mg/dL Total Protein (6.4-8.2) g/dl Albumin (3.4-5.0) g/dl Globulin gm/dL Albumin/Globulin Ratio (1-2) Ethyl Alcohol (0.00) gm% Ketones 3.43 (0.0-0.3) mM 06/23/17 06/23/17 06/23/17 Range/Units 13:30 13:30 13:30 WBC 10.43 H (4.23-9.07) K/mm3 RBC 5.81 (4.63-6.08) M/mm3 Hgb 17.4 (13.7-17.5) gm/L Hct 50.4 (40.1-51.0) % MCV 86.7 (79.0-92.2) fl MCH 29.9 (25.7-32.2) pg MCHC 34.5 (32.2-35.5) g/dl RDW Std Deviation 39.9 (35.1-43.9) fL Plt Count 317 (163-337) K/mm3 MPV 9.6 (9.4-12.3) fl Neut % (Auto) 83.9 H (34.0-67.9) % Lymph % (Auto) 6.0 L (21.8-53.1) % [place] % (Auto) 9.4 (5.3-12.2) % Eos % (Auto) 0 L (0.8-7.0) Baso % (Auto) 0.2 (0.1-1.2) % Neut # (Auto) 8.75 H (1.78-5.38) K/mm3 Lymph # (Auto) 0.63 L (1.32-3.57) K/mm3 [place] # (Auto) 0.98 H (0.30-0.82) K/mm3 Eos # (Auto) 0.00 L (0.04-0.54) K/mm3 Baso # (Auto) 0.02 (0.01-0.08) K/mm3 Manual Slide Review Normal smear Puncture Site ABG pH (7.35-7.45) ABG pCO2 (35.0-45.0) mmHg ABG pO2 (80.0-100.0) mmHg ABG HCO3 (22.0-26.0) meq/L ABG O2 Saturation (96.0-97.0) % ABG Base Excess (-2-2.0) William Test O2 Delivery Device FiO2 (21.00-100.00) % Sodium 142 (136-145) mEq/L Potassium 4.6 (3.5-5.1) mEq/L Chloride 100 (98-107) mEq/L Carbon Dioxide 12 L (21-32) mEq/L Anion Gap 34.6 H (5-15) BUN 15 (7-18) mg/dL Creatinine 1.5 H (0.7-1.3) mg/dL Est Cr Clr Drug Dosing 82.63 mL/min Estimated GFR (MDRD) 57 (>60) mL/min BUN/Creatinine Ratio 10.0 L (14-18) Glucose 308 H (74-106) mg/dL POC Glucose (70-105) mg/dL Serum Osmolality (280-300) mosm/kg Calcium 9.8 (8.5-10.1) mg/dL Magnesium 2.7 H (1.8-2.4) mg/dl Total Bilirubin 0.7 (0.2-1.0) mg/dL AST 17 (15-37) U/L ALT 28 (16-63) U/L Alkaline Phosphatase 131 H (46-116) U/L C-Reactive Protein 2.4 H* (<1.0) mg/dL Total Protein 8.7 H (6.4-8.2) g/dl Albumin 4.9 (3.4-5.0) g/dl Globulin 3.8 gm/dL Albumin/Globulin Ratio 1.3 (1-2) Ethyl Alcohol 0.00 (0.00) gm% Ketones (0.0-0.3) mM 06/23/17 06/23/17 Range/Units 13:46 16:55 WBC (4.23-9.07) K/mm3 RBC (4.63-6.08) M/mm3 Hgb (13.7-17.5) gm/L Hct (40.1-51.0) % MCV (79.0-92.2) fl MCH (25.7-32.2) pg MCHC (32.2-35.5) g/dl RDW Std Deviation (35.1-43.9) fL Plt Count (163-337) K/mm3 MPV (9.4-12.3) fl Neut % (Auto) (34.0-67.9) % Lymph % (Auto) (21.8-53.1) % [place] % (Auto) (5.3-12.2) % Eos % (Auto) (0.8-7.0) Baso % (Auto) (0.1-1.2) % Neut # (Auto) (1.78-5.38) K/mm3 Lymph # (Auto) (1.32-3.57) K/mm3 [place] # (Auto) (0.30-0.82) K/mm3 Eos # (Auto) (0.04-0.54) K/mm3 Baso # (Auto) (0.01-0.08) K/mm3 Manual Slide Review Puncture Site Rt radial ABG pH 7.30 L (7.35-7.45) ABG pCO2 19.5 L* (35.0-45.0) mmHg ABG pO2 95.0 (80.0-100.0) mmHg ABG HCO3 9.3 L (22.0-26.0) meq/L ABG O2 Saturation 97.2 H (96.0-97.0) % ABG Base Excess -15.2 L (-2-2.0) William Test Positive O2 Delivery Device Room air FiO2 0.00 L (21.00-100.00) % Sodium (136-145) mEq/L Potassium (3.5-5.1) mEq/L Chloride (98-107) mEq/L Carbon Dioxide (21-32) mEq/L Anion Gap (5-15) BUN (7-18) mg/dL Creatinine (0.7-1.3) mg/dL Est Cr Clr Drug Dosing mL/min Estimated GFR (MDRD) (>60) mL/min BUN/Creatinine Ratio (14-18) Glucose (74-106) mg/dL POC Glucose 207 H (70-105) mg/dL Serum Osmolality (280-300) mosm/kg Calcium (8.5-10.1) mg/dL Magnesium (1.8-2.4) mg/dl Total Bilirubin (0.2-1.0) mg/dL AST (15-37) U/L ALT (16-63) U/L Alkaline Phosphatase (46-116) U/L C-Reactive Protein (<1.0) mg/dL Total Protein (6.4-8.2) g/dl Albumin (3.4-5.0) g/dl Globulin gm/dL Albumin/Globulin Ratio (1-2) Ethyl Alcohol (0.00) gm% Ketones (0.0-0.3) mM Meds: Medications Generic Name Dose Route Start Last Admin Trade Name Akinq PRN Reason Stop Dose Admin Insulin Human Regular 100 unit 100 mls @ 2 mls/hr 06/23/17 17:15 / Sodium Chloride IV TITRATE ALEJANDRA Protocol 2 UNIT/HR Potassium Chloride/Dextrose/Sod Cl 1,000 mls @ 250 mls/hr 06/23/17 17:15 D5 Ns With 20 Meq Kcl IV ASDIRECTED ALEJANDRA Discontinued Medications Generic Name Dose Route Start Last Admin Trade Name Akinq PRN Reason Stop Dose Admin Famotidine 20 mg 06/23/17 13:45 06/23/17 14:13 Pepcid IVPUSH 06/23/17 13:46 20 mg ONETIME ONE Administration Sodium Chloride 1,000 mls @ 999 mls/hr 06/23/17 13:45 06/23/17 14:14 Normal Saline IV 06/23/17 14:45 999 mls/hr ONETIME ONE Administration Potassium Chloride 10 meq/ 100 mls @ 100 mls/hr 06/23/17 14:00 06/23/17 14:18 Premix IV 06/23/17 14:59 100 mls/hr Q1H ONE Administration Sodium Chloride 1,000 mls @ 999 mls/hr 06/23/17 15:21 06/23/17 15:28 Normal Saline IV 06/23/17 16:21 999 mls/hr ONETIME ONE Administration Metoclopramide HCl 10 mg 06/23/17 15:21 06/23/17 15:28 Reglan IVPUSH 06/23/17 15:22 10 mg ONETIME ONE Administration Ondansetron HCl 4 mg 06/23/17 13:45 06/23/17 14:12 Zofran IVPUSH 06/23/17 13:46 4 mg ONETIME ONE Administration Pantoprazole Sodium 40 mg 06/23/17 15:58 06/23/17 16:13 Protonix Iv IVPUSH 06/23/17 15:59 40 mg ONETIME ONE Administration - Re-Assessments/Exams Free Text/Narrative Re-Assessment/Exam: 06/23/17 13:56 Emily is a 26yo type 1 DM, managed with levemir and novolog for years. He has had URI x 5 days, significant binge drinking, alcohol intake last night of up to 12 pack of beer and several shots. He ate a large meal and did not take his insulin last night. He awoke at 9am with n/v, intractable since that time until presentation to ED. Blood sugars are in the 400's at home. He is likely in DKA. DKA labs ordered. Fluid bolus to be given, 3L NS ordered along with pepcid and zofran. Discussed with patient he may need to be admitted pending labs and his turn around. He voices understanding. Free Text/Narrative Re-Assessment/Exam: 06/23/17 17:19 Patient with hematemesis, bright red blood in emesis bag during his early ER stay. Reviewed case with Dr. Key, Hospitalist for admission. Currently surgeon strategy planning consultant does not do endoscopy procedures should that be needed; likely will be needed. She recommends transfer to [place] for higher level of care with Surgeon/Endoscopy services available. Call placed to [facility] in [place]; review with [facility] and ER Dr who feel patient will need ICU. They do not have ICU beds available. Call placed to [facility] in [place]. Review with Dr. Drew, Hospitalist who is in agreement to accept care for patient for direct admission. Ambulance service will be contacted for transfer arrangements. Patient in agreement to transfer. Recheck of blood sugar is 207. Will switch fluids to D5NS with 20 KCL TRA 250cc/hr. Per Dr. Drew recommendations start insulin drip; will dose this at 2 units/hr with accuchecks Q15 minutes during transfer; stop drip if sugar at or below 120. [facility] to call ER dry goods clerk with room number. Departure - Departure Time of Disposition: 17:23 Disposition: DC/Tfer to Acute Hospital 02 Condition: Good Clinical Impression: Hyperglycemia, Hyperglycemia due to type 1 diabetes mellitus, Hematemesis with nausea DKA, type 1 Qualifiers: Diabetes mellitus complication detail: without coma Qualified Code(s): E10.10 - Type 1 diabetes mellitus with ketoacidosis without coma - Discharge Information Instructions: Type 1 Diabetes Mellitus, Adult Referrals: PCP,Not In Area [Primary Care Provider] - Forms: ED Department Discharge Additional Instructions: Transfer to [facility] for direct admission under accepting, Dr. Drew- transfer via ambulance. - My Orders Last 24 Hours: My Active Orders 06/23/17 13:46 RT Arterial Blood Gases, ABG [RC] Click to Edit 06/23/17 15:23 EKG Documentation Completion [RC] STAT UA W/MICROSCOPIC [URIN] Stat 06/23/17 16:01 Accu Check [Blood Glucose Check, Bedside] [RC] Q1HR 06/23/17 16:47 DRUG SCREEN, URINE [URCHEM] Stat 06/23/17 16:57 BASIC METABOLIC PANEL,BMP [CHEM] Stat 06/23/17 17:03 RT Arterial Blood Gases, ABG [RC] Click to Edit BLOOD GAS ARTERIAL [BG] Stat 06/23/17 17:15 Dextrose 5%-0.9% NaCl with KCl [D5 NS with 20 mEq KCl] 1,000 ml IV ASDIRECTED Insulin Regular, Human [HumuLIN R] 100 unit Sodium Chloride 0.9% [Normal Saline] 99 ml IV TITRATE - Assessment/Plan Last 24 Hours: My Active Orders 06/23/17 13:46 RT Arterial Blood Gases, ABG [RC] Click to Edit 06/23/17 15:23 EKG Documentation Completion [RC] STAT UA W/MICROSCOPIC [URIN] Stat 06/23/17 16:01 Accu Check [Blood Glucose Check, Bedside] [RC] Q1HR 06/23/17 16:47 DRUG SCREEN, URINE [URCHEM] Stat 06/23/17 16:57 BASIC METABOLIC PANEL,BMP [CHEM] Stat 06/23/17 17:03 RT Arterial Blood Gases, ABG [RC] Click to Edit BLOOD GAS ARTERIAL [BG] Stat 06/23/17 17:15 Dextrose 5%-0.9% NaCl with KCl [D5 NS with 20 mEq KCl] 1,000 ml IV ASDIRECTED Insulin Regular, Human [HumuLIN R] 100 unit Sodium Chloride 0.9% [Normal Saline] 99 ml IV TITRATE
[2017-06-23] MEDS ORDERED: Famotidine 20 MG/2 ML SDV IVPUSH ONE (13:45)
[2017-06-23] MEDS ORDERED: Sodium Chloride 0.9% 1,000 ML IV ONE ×2 (13:45→15:21)
[2017-06-23] MEDS ORDERED: Ondansetron 4 MG/2 ML SDV IVPUSH ONE (13:45)
[2017-06-23] MEDS ORDERED: Potassium Chloride 10 MEQ in Premix Bag 1 BAG IV ONE (14:00)
[2017-06-23] MEDS ORDERED: Metoclopramide 10 MG/2 ML SDV IVPUSH ONE (15:21)
[2017-06-23] MEDS ORDERED: Pantoprazole 40 MG Vial IVPUSH ONE (15:58)
[2017-06-23] MEDS ORDERED: Dextrose 5%-0.9% NaCl with KCl 1,000 ML IV SCH (17:15)
== END 2017-06-23 18:16 ==
LOC: JD.ED 13:11
DX: E10.10 Type 1 diabetes mellitus with ketoacidosis without coma (principal); E10.65 Type 1 diabetes mellitus with hyperglycemia; K92.0 Hematemesis; Z79.4 Long term (current) use of insulin
CPT/HCPCS: 36415; 36600; 80048; 80053; 80306; 81001; 82009; 82803; 82962; 83735; 83930; 85025; 86140; 93005; 96361; 96365; 96367; 96375; 99285; C9113; G0480; J1817; J2405; J2765; J3480; J7030; J7040; 93010; 99284-25; J1815